=== PATIENT | male | born 1985 | race Caucasian/White ===

== ENCOUNTER 2022-08-18 07:34 | Inpatient (IN) | payer OTHER, SELFPAY ==
[2022-08-18] VITALS (25 sets, daily range): BP systolic 98–111; BP diastolic 58–69; PULSE 78–107; RESP 16–19; TEMP 37.3–39.3; O2SAT 94–100
--- NOTE | 2022-08-18 07:59 | W.ED.GENAD ---
Discharge Plan Disposition Patient Disposition: Admit to [facility] Condition: Serious Discharge Details Chief Complaint: RespSymp Clinical Impression: Intraperitoneal abscess Admit Date/Time: 08/18/22 13:27 Admit Provider: Desmond Muniz Attending Provider: Desmond Muniz Primary Care Provider: Michael Razo ED Provider: Nicolasa Moya Discharge Data Discharge Date/Time-TO BE ENTERED AT DEPARTURE: 08/18/22 14:22 Medical Decision Making Patient is a pleasant 37-year-old gentleman presenting today with chief complaint of 1.5 weeks of fevers, malaise, anorexia and right lower quadrant pain. States steady progression of increasing symptoms. Concerned that he was exposed to influenza. States that he began developing a mild cough this morning but denies any congestion, sore throat, sinus pain. States that he has had loose stools since the onset of this, 2 bowel movements this morning all of which was nonbloody. No nausea or vomiting. Has been trying to hydrate. No recent travel. No previous abdominal surgeries. 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 On exam, patient appears nontoxic. Heart rate is elevated at 107, vitals otherwise within normal limits. Lungs are clear, normal HEENT exam, normal cardiac exam. Abdomen is fairly benign. Some mild discomfort elicited in the right lower quadrant although he does indicate McBurney point is area of maximal tenderness and where he experiences pain when he is driving. The patient was primarily concerned for viral source of his discomfort such as flu, the slow progression does not point to this. As he has not had any upper respiratory symptoms and more significant right lower quadrant pain, I am primarily concerned for appendicitis. He has not had any dysuria, increased frequency or urgency. Plan to obtain baseline labs, CT. Will obtain wound COVID testing. Spoke with the radiologist, he advised that appendix looks normal but that he has several abscesses in the pelvis, largest [id number]. Spoke with general surgery team. They recommend IR drainage, IV abx. He advised that patient would likely be able to d/c to home after drainage placement. Have had images pushed to [facility], will request consultation with IR team. Consulted with [facility]. They advised that patient is able to go to their IR suite for drain placement but that this cannot be completed until tomorrow afternoon. Spoke again with Dr. Muniz who agrees to admit the patient here for IV abx. They will arrange for transport. Patient is flu positive. Unknown when this started. Based on his sxs, likely after the GI pain and onset of abscess formation. Description puts patient out of the window for treatment. From flu standpoint, patient would not be in the hospital, being admitted for abscess which has started to form weeks ago. Discussed plan with patient who agrees to admission here, plan to be transported to for definitive care tomorrow. Sign Out No HPI General Date/Time Provider Initiated Documentation: 08/18/22 07:35. Limitations to Documentation: no limitations. Information obtained by: patient and RN notes reviewed. History of Present Illness 37 year old M presents to the emergency department with the chief complaint of fever, anorexia, diarrhea, RLQ pain, described as mild (intermittent, pain is not severecurrently), Quality is described as aching, and is localized to the abdomen. Patient reports no radiation. Patient started experiencing this week(s) (1.5) and it has been intermittent. Immobilization improves symptom(s), Movement worsens symptoms (pain increases going over bumps when driving) . Patient notes cough (slight cough, started this AM), diaphoresis, fever/chills, loss of appetite and malaise; denies chest pain, headaches, nausea/vomiting, rash and shortness of breath. Patient did receive the following treatments prior to arrival, other (dayquil) Related Data Home Medications Medication Instructions Recorded Confirmed Unknown [No Known Home Meds] 08/18/22 08/18/22 Allergies Allergy/AdvReac Type Severity Reaction Status Date / Time No Known Allergies Allergy Unverified 08/18/22 07:45 General Stated Complaint: RespSymp BLOSSOM: 4 Review of Systems Constitutional Constitutional: Reports as per HPI, Reports chills, Reports fatigue, Reports fever(s), Denies headache(s), Reports lethargy, Reports malaise and Reports poor appetite ENT Ears, Nose, Mouth, and Throat: Denies ear discharge, Denies otalgia, Denies headache(s), Denies nasal congestion, Denies nasal discharge and Denies sore throat Cardiovascular Cardiovascular: Reports as per HPI, Denies chest pain and Denies dyspnea Respiratory Respiratory: Reports as per HPI, Reports cough (chronic cough, increased this AM), Denies hemoptysis, Denies pain on inspiration, Denies pain with cough and Denies dyspnea Gastrointestinal Gastrointestinal: Reports as per HPI Genitourinary Genitourinary: Denies system reviewed and no additional complaints, except as documented (patient denies any change in urinary habits) Musculoskeletal Musculoskeletal: Reports as per HPI and Denies back pain Integumentary/Breasts Skin/Breast: Reports as per HPI and Denies rash Neurologic Neurologic: Reports as per HPI and Denies headache(s) Endocrine Endocrine: Reports fatigue PFSH All Active Problems (Updated 08/19/22 @ 04:35 by FARHAN Dunbar) Intraperitoneal abscess (Acute) Social History Smoking/Tobacco Use Status: Unknown Smoking risk assessment performed?: Yes Alcohol Intake: never Substance use type: does not use Exam Const General: cooperative, healthy appearing, comfortable, no acute distress and well developed Nutritional Appearance: average body habitus and well nourished Orientation: alert and awake HENMT Head: normal to inspection Ears: hearing grossly normal bilaterally, external ears normal, TM's normal bilaterally and mastoids normal Mouth: oral mucosae normal and mucous membranes dry (appears dry) Throat: posterior oropharynx normal and tonsils normal Neck Neck: normal visual inspection, lymphadenopathy noted (left side, singular enlarged node along lateral chain) and no meningeal signs Resp Effort & Inspection: normal respiratory effort, able to speak in complete sentences and no respiratory distress Auscultation: clear to auscultation bilaterally, no rales, no rhonchi and no wheezes Cardio Rate: regular rate Rhythm: regular rhythm Heart Sounds: S1 normal and S2 normal GI Inspection: normal to inspection Palpation: soft, no hepatosplenomegaly, no guarding, no hernias, no masses and tender in the RLQ; Blandon's sign negative, obturator sign negative, psoas sign negative and with no rebound tenderness Back/Spine/Pelvis Back: no CVA tenderness Skin General skin exam: no rashes or lesions noted Trauma: no lacerations or abrasions Neuro General: patient alert and patient awake Cognition: normal cognition Speech: speech normal Gait: normal gait Psych Appearance: grossly normal and well kempt Mental Status: mental status grossly normal Speech and Movement: speech and movement normal Course Vital Signs Vital signs: Vital Signs Temperature 37.3 C 08/18/22 07:41 Pulse 107 H 08/18/22 07:41 Respiratory Rate 16 08/18/22 07:41 Blood Pressure 111/63 08/18/22 07:41 Pulse Oximetry 96 08/18/22 07:41 Temperature 37.3 C 08/18/22 07:41 Temperature Source Oral 08/18/22 07:41 Pulse 107 H 08/18/22 07:41 Respiratory Rate 16 08/18/22 07:41 Respiratory Effort 08/18/22 07:45 Blood Pressure 111/63 08/18/22 07:41 Blood Pressure Position Sitting 08/18/22 07:41 Pulse Oximetry 96 08/18/22 07:41 Oxygen Delivery Method Room Air 08/18/22 07:41 Oxygen Flow Rate 0 08/18/22 07:41 Pain Level 0 08/18/22 07:41
[2022-08-18] MEDS: Lactated Ringers 1,000 ML 1000 ML IV (08:34)
[2022-08-18] MEDS: Normal Saline Flush 10 ML SYR IVP ×2 (08:35→16:24)
[2022-08-18 08:41] LABS: Abs Immature Grans 0.14 10^3/uL (0.0-0.06); Absolute Basophil Count 0.06 10^3/uL (0.0-0.2); Absolute Eosinophil Count 0.09 10^3/uL (0.0-0.7); Absolute Lymphocyte Count 1.37 10^3/uL (1.2-3.4); Absolute Monocyte Count 1.87 10^3/uL (0.1-0.8); Basophils % 0.4; Eosinophils % 0.6; HGB 12.2 g/dL (13.5-17.5); Immature Grans % 0.9; Lymphocytes % 8.7; MCH 30.3 pg (27.0-33.0); MCV 92 fL (80-95); MPV 10.5 fL (8.0-11.0); Monocytes % 11.9; Neutrophils % 77.5; Platelet Count 459 10^3/uL (130-400); RBC 4.02 10^6/uL (4.36-5.78); RDW 13.4 % (11.8-14.1); RDW-SD 45.7 fL; WBC 15.75 10^3/uL (4.4-10.8)
[2022-08-18 08:43] LABS: Absolute Neutrophil Count 12.21 10^3/uL (1.2-6.7)
[2022-08-18 08:56] LABS: ALT 43 U/L (16-63); AST 32 U/L (15-37); Albumin 2.3 g/dL (3.4-5.0); Alkaline Phosphatase 117 U/L (46-116); Anion Gap 9.1 mmol/L (3-11); BUN 13 mg/dL (7-18); Bilirubin, Total 0.3 mg/dL (0.2-1.0); CO2 26.9 mmol/L (21.0-32.0); Calcium 7.9 mg/dL (8.5-10.1); Chloride 102 mmol/L (98-107); Diff Comment Diff Reviewed; Estimated GFR 98.18 (mL/min/1.73m2); Glucose 105 mg/dL (74-106); Magnesium 2.1 mg/dL (1.8-2.4); Potassium 3.4 mmol/L (3.5-5.1); RBC Morphology Normal; Sodium 138 mmol/L (136-145); Total Protein 7.4 g/dL (6.4-8.2)
[2022-08-18 09:06] LABS: COVID-19 PCR Negative (Negative); Influenza A PCR Positive (Negative); Influenza B PCR Negative (Negative); RSV PCR Negative (Negative)
[2022-08-18 09:14] LABS: Source Nasopharynx
[2022-08-18 09:35] LABS: Bilirubin Negative (Negative); Blood Moderate (Negative); Clarity Clear (Clear); Glucose Negative (Negative); Ketones Negative (Negative); Leukocyte Esterase Negative (Negative); Nitrite Negative (Negative); Urobilinogen 0.2 EU/dL (Up TO 0.2)
[2022-08-18 09:47] LABS: Bacteria Few HPF (Negative); Crystals Negative HPF (Negative); Epithelial Cells Rare HPF (Negative); Mucus Moderate (Negative); WBC 0-2 HPF (0-5)
[2022-08-18 09:48] LABS: C & S Indicated? Yes; Casts Negative LPF (Negative)
--- NOTE | 2022-08-18 09:54 | DI.CT_ITS ---
Exam(s) CT ABDOMEN PELVIS W EXAM: CT ABDOMEN PELVIS W CLINICAL HISTORY: RLQ pain. TECHNIQUE: Imaging Protocol: Axial computed tomography images with coronal and sagittal reformatted images were created and reviewed CONTRAST MATERIAL: Intravenous: Omnipaque-350 100cc Oral: None COMPARISON: No exams were available for comparison FINDINGS: VISUALIZED LUNG BASES: No nodules nor pleural effusions evident. ABDOMEN: There is no ascites. LIVER: Liver is hypodense implying steatosis. There are no discrete focal hepatic lesions evident. No dilated intrahepatic ducts. No evidence of intrahepatic abscess. GALLBLADDER/BILIARY: No obvious gallbladder pathology. CBD is not dilated. PANCREAS: No evidence of pancreatic mass nor dilatation of the pancreatic duct. SPLEEN: Spleen is not enlarged. No obvious intrasplenic lesions. Splenic and portal veins are paten t. ADRENALS: There are no significant adrenal masses. KIDNEYS:No cysts evident. No solid renal masses. No calculi nor hydronephrosis.. ABDOMINAL AORTA: Abdominal aorta is not enlarged. LYMPH NODES:There is no retroperitoneal nor paraaortic adenopathy. ABDOMINAL WALL: No evidence of significant anterior abdominal wall nor inguinal hernia. GI: There are multiple abnormal fluid collections in the pelvis. Largest is in the right lower quadr ant and measures approximately 8. cm wide by 3 cm AP by 4 cm craniocaudal. Has appearance of an absc ess. It is immediately adjacent to the terminal ileum. The visualized appendix exhibits upper emily l diameter. The sigmoid wall appears slightly suspect laterally left side for diverticulitis. PELVIS: There is a tiny amount of free fluid in the dependent aspect of the pelvis which is probably purulent . LYMPH NODES: There is no intrapelvic nor inguinal adenopathy. REPRODUCTIVE: Prostate not enlarged. Seminal vesicles unremarkable. URINARY BLADDER: No calculi nor obvious focal masses evident. Bladder wall is mildly but uniformly t hickened. No wall gas evident. OSSEOUS: No significant osseous lesions. IMPRESSION: 1. There are fluid collections in the pelvis-right lower quadrant, largest measuring 8 x 3 x 4 cm med ially adjacent to the terminal ileum. Has appearance of an abscess. The adjacent appendix appears u pper normal diameter and doubtful as etiology.. Suspect sigmoid diverticulitis as the culprit. Othe r smaller nearby abscess is also evident. 2. There is no gas in the portal venous system and no evidence of intrahepatic abscess. However, hep atic steatosis is incidentally noted. 3. There is no gas in the urinary bladder. Discussed with ER provider. RADIATION DOSE DELIVERED: 754.08mGy.cm Total DLP DATA REPOSITORY: All CT scans at this facility are submitted to the National Radiology Data Registry (NRDR) Dose Index Registry (DIR) with the [employer] (ACR). RADIATION OPTIMIZATION: All CT scans at this facility use at least one of these dose optimization te chniques: automated exposure control; mA and/or kV adjustment per patient size (includes targeted exa ms where dose is matched to clinical indication); or iterative reconstruction.
[2022-08-18] MEDS: Omnipaque 350 MG/ML 500 ML BTL-Imaging package 100 ML IJ (10:02)
[2022-08-18] MEDS: Normal Saline - Diluent 50 ML VIAL IV (10:03)
[2022-08-18] MEDS: PIPERACILLIN/TAZO 3.375 GM in Normal Saline 50 ML IVPB ×2 (10:54→18:38)
[2022-08-18] MEDS: Normal Saline 1,000 ML 1000 ML IV (10:54)
--- NOTE | 2022-08-18 10:59 | SCONE_ITS ---
Date of service: 08/18/22 Time of Service: 11:49 Assessment and Plan Assessment and plan (1) Intraperitoneal abscess: Status: Acute Assessment and plan: 37-year-old man with a abdominal/pelvic abscess unknown etiology but most likely from perforated sigmoid diverticulitis based off of the story and the CT scan images I have looked over. Certainly a perforated appendicitis is a possible explanation as well and the sigmoid colon could have its appearance just as a reactive bystander. Certainly the differential diagnosis also includes other etiologies such as an underlying malignancy (less likely) as well as the possibility of IBD (Crohn's or ulcerative colitis) but his terminal ileum looks normal radiographically and he does not have a history of chronic abdominal pain. A Meckel's diverticulitis that perforated iis also a possibility. He is hemodynamically stable and his abdominal exam is grossly benign with the exception of mild distention that he actually reports feels normal to me. Further he is passing gas and having bowel function. He has a leukocytosis and has been having fevers and the mainstay of his management strategy will be source control with percutaneous/IR?guided drainage. Draining the abscess and antibiotics should result in complete resolution in the majority of cases such as these. He will then need to have outpatient work-up for the underlying etiology and further discussion on future management strategies, if any. He definitely should have a colonoscopy in the next 6-8 weeks to evaluate the sigmoid colon in this region. If his colonoscopy turns out normal then I would advocate for diagnostic laparoscopy and interval, elective appendectomy if no other pathologic processes found. I suspect however, that a colonoscopy will reveal underlying diverticular disease and this is probably going to be the explanation for all of this. Whether or not to do an elective resection irritable but this can all be discussed after we have more knowledge of what caused this. Overall recommendations: Consult/transfer to tertiary facility for IR drainage If that cannot be facilitated today that he should stay in the hospital with IV antibiotics until drainage can be performed after which he can then be discharged on oral antibiotics once afebrile and leukocytosis has resolved. History of Present Illness Narrative: The patient is a 37-year-old otherwise healthy man who has not been having any issues previously who says about 2 weeks ago he started feeling sick. The sick feeling is very vague and involved respiratory as well as abdominal symptoms. None of them were very severe but he says about a week and a half ago he did develop severe abdominal pain that was cramping in the lung and lower belt line. This progressively got worse over the ensuing couple of days but then seemed to slowly improve but never went away completely. He also started having fevers shortly thereafter and says everyone in his house has the flu and he came to the ER today because he thinks he probably has the flu. At the bedside today he does not report severe abdominal pain but says he has this persistent discomfort in the right lower side like a pulled muscle. And it just will not go away. But that is not his chief complaint or why he is here in particular. At home he says he has been having normal bowel movements and has been passing gas without any problems. He denies a family history of colon cancer. He has actually had a colonoscopy before but he says it was years ago, he thinks more than 10 years. He says that that was done because of a family history of colon polyps at a young age. He just remembers being told it was normal. CT scan performed in the ED and a large intra-abdominal abscess was seen in the right lower quadrant and pelvis. The appendix is on one side of the abscess in the sigmoid colon is on the other side and appears mildly irritated. He was also found to have a white count and for these reasons surgery was consulted. He denies ever having intra-abdominal surgery previously. PFSH All Active Problems (Updated 08/18/22 @ 11:54 by Desmond Muniz MD) Intraperitoneal abscess (Acute) Social History Smoking risk assessment performed?: No Alcohol Intake: never Substance use type: does not use Exam Narrative Exam Narrative: General: Nontoxic, comfortable and interactive. Nonlabored breathing. Neuro: Alert and oriented x3 Psych: Appropriate mood and affect, good insight and understanding into his condition Abdomen: Soft, mildly distended, he really has no tenderness anywhere. Results Last Vital Signs Temp 100.4 F H 08/18/22 10:28 Pulse 81 08/18/22 10:28 Resp 16 08/18/22 10:28 BP 99/61 L 08/18/22 10:28 Pulse Ox 97 08/18/22 10:28 Labs Result diagrams: 08/18/22 08:30 08/18/22 08:30 Labs: Laboratory Results - last 24 hr 08/18/22 08/18/22 08/18/22 08:26 08:30 08:30 WBC 15.75 H RBC 4.02 L Hgb 12.2 L Hct 37.0 L MCV 92 MCH 30.3 MCHC 33.0 RDW 13.4 Plt Count 459 H MPV 10.5 Immature Gran % 0.9 Neutrophils % 77.5 Lymphocytes % 8.7 Monocytes % 11.9 Eosinophils % 0.6 Basophils % 0.4 Nucleated RBC % 0.0 Absolute Neutrophils 12.21 H Absolute Lymphocytes 1.37 Absolute Monocytes 1.87 H Absolute Eosinophils 0.09 Absolute Basophils 0.06 RBC Morphology Normal Sodium 138 Potassium 3.4 L Chloride 102 Carbon Dioxide 26.9 Anion Gap 9.1 BUN 13 Creatinine 1.0 Est GFR (CKD-EPI 2020) 98.18 Glucose 105 Calcium 7.9 L Magnesium 2.1 Total Bilirubin 0.3 AST 32 ALT 43 Alkaline Phosphatase 117 H Total Protein 7.4 Albumin 2.3 L Urine Color Urine Clarity Urine pH Ur Specific [place] Urine Protein Urine Ketones Urine Blood Urine Nitrite Urine Bilirubin Urine Urobilinogen Ur Leukocyte Esterase Urine RBC Urine WBC Ur Epithelial Cells Urine Crystals Urine Bacteria Urine Casts Urine Mucus Ur Culture Indicated? Urine Glucose COVID-19 Source Nasopharynx SARS-CoV-2 (PCR) Negative Influenza Type A (PCR) Positive A Influenza Type B (PCR) Negative RSV (PCR) Negative 08/18/22 09:27 WBC RBC Hgb Hct MCV MCH MCHC RDW Plt Count MPV Immature Gran % Neutrophils % Lymphocytes % Monocytes % Eosinophils % Basophils % Nucleated RBC % Absolute Neutrophils Absolute Lymphocytes Absolute Monocytes Absolute Eosinophils Absolute Basophils RBC Morphology Sodium Potassium Chloride Carbon Dioxide Anion Gap BUN Creatinine Est GFR (CKD-EPI 2020) Glucose Calcium Magnesium Total Bilirubin AST ALT Alkaline Phosphatase Total Protein Albumin Urine Color Yellow Urine Clarity Clear Urine pH 7.0 Ur Specific [place] 1.020 Urine Protein Trace H Urine Ketones Negative Urine Blood Moderate H Urine Nitrite Negative Urine Bilirubin Negative Urine Urobilinogen 0.2 Ur Leukocyte Esterase Negative Urine RBC 5-10 H Urine WBC 0-2 Ur Epithelial Cells Rare Urine Crystals Negative Urine Bacteria Few Urine Casts Negative Urine Mucus Moderate Ur Culture Indicated? Yes Urine Glucose Negative COVID-19 Source SARS-CoV-2 (PCR) Influenza Type A (PCR) Influenza Type B (PCR) RSV (PCR)
[2022-08-18] MEDS: ACETAMINOPHEN 1,000 MG/100 ML BTL 400 MG IVPB (11:14)
[2022-08-18] MEDS: Acetaminophen 500 MG TAB 1000 MG PO ×2 (16:11→21:19)
[2022-08-18] MEDS: Enoxaparin 40 MG/0.4 ML SYR SC (16:12)
[2022-08-18] MEDS: Lactated Ringers 1,000 ML 125 ML IV (16:24)
[2022-08-18] MEDS: Normal Saline 500 ML 30 ML IV (18:38)
[2022-08-19] MEDS: PIPERACILLIN/TAZO 3.375 GM in Normal Saline 50 ML IVPB ×4 (00:02→18:38)
[2022-08-19 02:09] VITALS: TEMP 37.9
[2022-08-19] MEDS: Acetaminophen 500 MG TAB 1000 MG PO ×4 (02:09→21:12)
[2022-08-19] MEDS: Lactated Ringers 1,000 ML 125 ML IV ×2 (02:10→11:37)
[2022-08-19 05:04] VITALS: TEMP 36.4
[2022-08-19 06:24] LABS: Abs Immature Grans 0.11 10^3/uL (0.0-0.06); Absolute Basophil Count 0.03 10^3/uL (0.0-0.2); Absolute Eosinophil Count 0.09 10^3/uL (0.0-0.7); Absolute Lymphocyte Count 2.15 10^3/uL (1.2-3.4); Absolute Monocyte Count 1.29 10^3/uL (0.1-0.8); Basophils % 0.2; Eosinophils % 0.7; HCT 38.3 % (40.0-50.0); HGB 12.2 g/dL (13.5-17.5); Immature Grans % 0.8; Lymphocytes % 16.2; MCH 29.6 pg (27.0-33.0); MCHC 31.9 % (32.0-36.0); MCV 93 fL (80-95); MPV 10.7 fL (8.0-11.0); Monocytes % 9.7; Neutrophils % 72.4; Platelet Count 392 10^3/uL (130-400); RBC 4.12 10^6/uL (4.36-5.78); RDW 13.6 % (11.8-14.1); RDW-SD 46.7 fL; WBC 13.27 10^3/uL (4.4-10.8)
[2022-08-19 06:34] LABS: Absolute Neutrophil Count 9.61 10^3/uL (1.2-6.7)
[2022-08-19 07:44] VITALS: BP 110/73; PULSE 72; RESP 18; TEMP 37.4; O2SAT 99
--- NOTE | 2022-08-19 09:59 | PDOC.CMIN ---
- If Service Date Differs Date of service: 08/19/22 Time of Service: 09:59 Care Management Initial Assess REASON FOR HOSPITALIZATION:: Inraperitoneal abscesses PAST MEDICAL HISTORY/PAST SURGICAL HISTORY:: All Active Problems (Updated 08/18/22 @ 11:54 by Desmond Muniz MD). Intraperitoneal abscess (Acute) PREVIOUS FUNCTIONAL STATUS/SOCIAL/FAMILY SUPPORTS:: Carlos Enrique lives in [place]. He works for [employer] CURRENT FUNCTIONAL STATUS:: CM was not able to meet with Carlos Enrique as he was transferred to [facility] for a down and back abscess drainage procedure in Interventional Radiology. His WBC remains elevated at 13.27 but is down from yesterday. He was febrile with a temperature of 39.3 C last evening, but he also has influenza A. ADVANCE DIRECTIVES:: none on file Has patient been provided with info about the portal/API?: Yes Did the patient sign up for the portal?: No CODE STATUS:: Full Code INSURANCE COVERAGE / FINANCIAL ISSUES:: [employer] CURRENT HOME/COMMUNITY SERVICES/EQUIPMENT:: none currently PRIMARY CARE PHYSICIAN:: Michael Razo POTENTIAL DISCHARGE NEEDS:: follow up with PCP and plan of care PATIENT/FAMILY EDUCATION NEEDS:: Review of discharge instructions, follow up plan, activity, limitations, Ask Me Three TRANSPORTATION:: via private vehicle with family PLAN:: Anticipate Carlos Enrique will discharge home with no new services unless transfer to a tertiary care facility is indicated. He will follow up with community providers and plan of care and transport with family. CM will continue to support Carlos Enrique and assess for ongoing discharge needs.
--- NOTE | 2022-08-19 11:11 | NUR.NOTE ---
Nursing Note: RN TO RN REPORT GIVEN TO ZEYAD ESCOBEDO FROM IR AT [facility]
[2022-08-19] MEDS: Normal Saline Flush 10 ML SYR IVP ×3 (11:38→21:32)
--- NOTE | 2022-08-19 12:55 | NUR.NOTE ---
Nursing Note: Pt left for [facility] IR procedure @ 12:55 w/ luci senior.
[2022-08-19] MEDS: Enoxaparin 40 MG/0.4 ML SYR SC (18:24)
[2022-08-19 18:33] VITALS: BP 110/70; PULSE 79; RESP 16; TEMP 37.4; O2SAT 100
[2022-08-19] MEDS: Nicotine 21 MG/24 HR PATCH TD (21:12)
[2022-08-19 23:12] VITALS: BP 98/61; PULSE 91; RESP 16; TEMP 37.5; O2SAT 95
[2022-08-20] MEDS: PIPERACILLIN/TAZO 3.375 GM in Normal Saline 50 ML IVPB ×2 (00:04→05:28)
[2022-08-20] MEDS: Acetaminophen 500 MG TAB 1000 MG PO ×2 (04:10→07:45)
[2022-08-20 04:15] VITALS: BP 108/72; PULSE 80; RESP 16; O2SAT 92
--- NOTE | 2022-08-20 07:28 | DSE_ITS ---
Date of service: 08/20/22 Time of Service: 07:28 DS: Diagnosis Discharge Diagnosis (1) Intraperitoneal abscess: Status: Acute Asessment and Plan: Record the volume of drainage in the collection device every day Check your temperature 2 times per day Follow-up in the office 1 week Discharge Plan Disposition Patient Disposition: Home Condition: Good Discharge Details Reason For Visit: Intraabdominal Abcess Admit Date/Time: 08/18/22 13:27 Admit Provider: Desmond Muniz Attending Provider: Desmond Muniz Primary Care Provider: Michael Razo Hospital Course Hospital Course: Carlos Enrique is a 37-year-old male who is approximately 2 weeks of a upper respiratory type symptoms. This was followed by crampy abdominal pain which steadily increased over the past several days. Came to the emergency department for evaluation of his abdominal pain, concerns that he had worsening. In fact, he did test positive for influenza type A. Additionally, he underwent a CAT scan of abdomen pelvis that showed a peritoneal abscess. The etiology of the a bscess was unclear, as its location was somewhat between the appendix and the sigmoid colon. He had a leukocytosis, but favorable hemodynamics. He was started on broad-spectrum antibiotics, and transfer down to [facility] for insertion of a percutaneous drain. He tolerated the procedure well. His white blood cell count trended towards normal, and he was discharged home with a drain in place and follow-up instructions with the office Home Meds and New Rx's Prescriptions: New tramadol 50 mg tablet 50 mg PO BID PRN (Reason: pain) Qty: 6 0RF Rx Instructions: Take 1 tablet by mouth every 12 hours as needed for severe pain amoxicillin-pot clavulanate 875-125 mg tablet 1 tab PO BID Qty: 20 0RF Rx Instructions: Take 1 tablet by mouth in the morning, and 1 tablet by mouth in the evening every day for 10 days Discharge Instructions Instructions: Peritonitis (GEN) Additional Instructions: 1. Record the output from your drain every day in a journal. Flush the drain at least once daily. 2. Okay to use tylenol and ibuprofen over the counter as needed for mild pain. Use the prescribed tramadol for more severe pain. 3. Leave bandages in place for 24 hours, then remove. 4. Shower with warm soapy water. Pat dry. Replace a Band-Aid around the drain insertion site if needed. 5. No soaking or tub baths until I see you in the office. 6. No heavy lifting until I see you in the office. 7. Call the office (or go directly to the emergency room after hours) if you notice any of the following: Develop chills (warm to touch), or if you have a thermometer and your temperature is above 101 Difficulty breathing or difficultly swallowing Persistent vomiting Any bleeding ? exceeding one tablespoon Stand Alone Forms: Nursing Discharge Form Referrals: Tray Monroy MD [ [facility]IAN] - 08/27/22 11:15 am Activity:: Activity as Tolerated Equipment/Supplies:: Saline flushes for drain Diet:: As Tolerated DS: Summary Time Spent with Patient providing and/or coordinating discharge services: Less than 30 minutes Status at Discharge Functional status at discharge: independent ambulation Overall status at discharge: patient is progressing back to baseline Mental Status: mental status grossly normal Speech and Movement: speech and movement normal Mood: congruent mood Affect: normal affect Exam Const General: cooperative, healthy appearing and comfortable Orientation: awake and oriented x3 Eyes General: appearance normal, both eyes and all related structures Conjunctivae: conjunctivae normal Sclera: sclerae normal Resp Effort & Inspection: normal respiratory effort and able to speak in complete sentences Cardio Jugular venous pressure: no JVD Rate: regular rate GI Inspection: non-distended Palpation: soft, no guarding, no hernias and nontender Auscultation: normal bowel sounds Other: Drain site is clean, the drain effluent is seropurulent Skin General skin exam: normal turgor Neuro General: patient alert, patient awake and patient oriented x3 Cognition: normal cognition Extrem Right lower extremity: no edema Left lower extremity: no edema Psych Mental Status: mental status grossly normal Speech and Movement: speech and movement normal Mood: congruent mood Affect: normal affect DS: Data Vitals/I&O Vitals and I&O: Vital Signs Temperature 99.5 F 08/19/22 23:12 Temperature Source Tympanic 08/20/22 04:15 Pulse 80 08/20/22 04:15 Pulse Rhythm Regular 08/20/22 04:36 Respiratory Rate 16 08/20/22 04:15 Respiratory Effort 08/20/22 04:36 Respiratory Depth Normal 08/20/22 04:36 Respiratory Pattern Normal 08/20/22 04:36 Blood Pressure 108/72 08/20/22 04:15 Blood Pressure Mean 72 08/18/22 12:45 Blood Pressure Position Sitting 08/18/22 07:41 Pulse Oximetry 92 08/20/22 04:15 Oxygen Delivery Method Room Air 08/20/22 04:15 Oxygen Flow Rate 0 08/20/22 04:15 Pain Level 5 08/20/22 04:15 Intake & Output 08/19/22 08/19/22 08/20/22 11:59 23:59 11:59 Intake Total 1305.416 / 1480.416 175 / 1480.416 979.333 / 979.333 Output Total 50 / 50 Balance 1305.416 / 1430.416 125 / 1430.416 979.333 / 979.333 Intake: IV 1205.416 / 1380.416 175 / 1380.416 758.333 / 758.333 Oral 100 / 100 221 / 221 Injectate 0 / 0 RLQ Drain 0 / 0 Output: Drainage 50 / 50 RLQ Drain 50 / 50 Other: Urine Color Yellow Urine Appearance Clear Clear Clear Urine Odor Normal Comment pT uses the bathroom independently. pt voided independently Voiding Methods Toilet Toilet Data Completed and Pending Labs on day of discharge: Labs from last 24 hours 08/20/22 06:00 WBC Pending RBC Pending Hgb Pending Hct Pending MCV Pending MCH Pending MCHC Pending RDW Pending Plt Count Pending MPV Pending Preliminary micro results at discharge 08/18/22 09:27 Urine Culture - Preliminary Urine - Reflex from Counts include 234 beds at the [facility] All Active Problems Intraperitoneal abscess (Acute) Social History Smoking/Tobacco Use Status: Unknown Smoking risk assessment performed?: Yes Alcohol Intake: never Substance use type: does not use
[2022-08-20 07:35] LABS: HCT 37.1 % (40.0-50.0); HGB 12.1 g/dL (13.5-17.5); MCHC 32.6 % (32.0-36.0); MCV 92 fL (80-95); MPV 10.4 fL (8.0-11.0); Platelet Count 396 10^3/uL (130-400); RBC 4.03 10^6/uL (4.36-5.78); RDW 13.4 % (11.8-14.1); RDW-SD 46.3 fL; WBC 11.04 10^3/uL (4.4-10.8)
[2022-08-20] MEDS: Lactated Ringers 1,000 ML 125 ML IV (07:45)
[2022-08-20] MEDS: Amoxicillin 875/Clav. 125 TAB PO (07:45)
[2022-08-20 07:46] VITALS: BP 104/70; PULSE 76; RESP 16; TEMP 36.9; O2SAT 94
--- NOTE | 2022-08-20 15:18 | PDOC.CMDIS ---
- If Service Date Differs Date of service: 08/20/22 Time of Service: 15:18 LACE Index Scoring Tool - Questions: Length of Stay (in days): 2 Acuity (Admit via E.D.?): Yes E.D. Visits: 1 - Answers: Total Score: 6 Risk of Readmission: Low Risk Care Management Discharge Reason for Hospitalization: Inraperitoneal abscesses Discharge Plan: Carlos Enrique will discharge home with no new services, he will follow up with community providers and plan of care and transport with family. Patient/Family Education Needs: Review discharge instructions, discuss Ask Me Three.
--- NOTE | 2022-09-05 09:58 | W.PM.PROGNOT ---
Date of Service Date of service: 08/19/22 Time of Service: 14:30 Assessment and Plan Assessment and plan (1) Intraperitoneal abscess: Status: Acute Assessment and plan: We will continue the intravenous antibiotics for now, and reassess after the insertion of the drain. We will have to see what the character of the drainage is, and how he does clinically, but hopefully we can transition to enteral antibiotics in the next day or so, and work towards getting him discharged home. Subjective Subjective Interval history since last seen: This note is entered in a delayed fashion because Carlos Enrique was not present during my visit. Unfortunately, [facility] was not able to accommodate percutaneous drainage yesterday. He did fine overnight, with no significant clinical changes. He was brought down to [facility] for percutaneous drainage this afternoon. Objective Last Vital Signs Temp 98.4 F 08/20/22 07:46 Pulse 76 08/20/22 07:46 Resp 16 08/20/22 07:46 BP 104/70 08/20/22 07:46 Pulse Ox 94 08/20/22 07:46
== END 2022-08-20 11:34 | disposition home or self-care (01) | DRG 373 ==
LOC: ER 07:58 → MS 15:03
PROVIDERS: Surgery; Admitting Provider Student in an Organized Health Care Education/Training Program; Emergency Provider Physician Assistant; PCP Internal Medicine; Visit Provider Student in an Organized Health Care Education/Training Program
DX: K65.1 Peritoneal abscess (principal); J10.1 Influenza due to other identified influenza virus with other respiratory manifestations; D72.829 Elevated white blood cell count, unspecified
CPT/HCPCS: 36415; 80053; 85027; 87637; 96361; 96365; 96375; 99285; J1650; 74177; 81003; 81015; 83735; 85025; 87086; 99284; J0131; J2543

== ENCOUNTER 2023-01-14 11:47 | Inpatient (IN) | payer MEDICAID, SELFPAY ==
[2023-01-14] VITALS (11 sets, daily range): BP systolic 97–104; BP diastolic 66–76; PULSE 93–117; RESP 17–18; TEMP 36.8–37.2; O2SAT 98–99
--- NOTE | 2023-01-14 12:00 | DI.CT_ITS ---
Exam(s) CT ABDOMEN PELVIS W EXAM: CT ABDOMEN PELVIS W CLINICAL HISTORY: abdominal pain, recent surgery for sbo. TECHNIQUE: Imaging Protocol: Axial computed tomography images with coronal and sagittal reformatted images were created and reviewed CONTRAST MATERIAL: Intravenous: Omnipaque 350 Contrast volume:100 ml Oral: yes / no COMPARISON: CT CT ABDOMEN PELVIS W from 08/18/[address] ABDOMEN PELVIS W from 09/18/2022 FINDINGS: ABDOMEN: Lung Bases: Normal where visualized. Liver: Normal density. No measurable mass. Gallbladder and biliary tract: No radiodense calculus or dilation. Pancreas: Normal density, no abnormal calcifications or inflammatory process. Spleen: Normal. Kidneys: Normal size, contour and axis. No radiodense stones or obstructive uropathy. No suspicious m asses seen. Adrenal glands: No masses seen. Abdominal Aorta: Abdominal portion non-dilated. Soft tissues: Midline skin josias. No significant fluid collection or evidence of abscess in this l ocation. New abscess in the right lower quadrant subcutaneous fat, measuring 4.4 by arm 2.8 by 3.8 c m. There are some mildly enlarged right groin lymph nodes, consistent with reactive lymph nodes PELVIS: Bladder: Nearly empty. Not well evaluated. No calculi. Bowel: No obstruction. Severe inflammation involving bowel loops in the right lower quadrant in the previous location of the abscess. No discrete abscess is visible today. Suture material noted in th e right lower quadrant could be related to bowel resection. Continued wall thickening of the sigmoid colon which could be reactive secondary to adjacent inflammation. Bones: Within normal limits for age. Reproductive organs: Within normal limits. Impression: 4.4 centimeter abscess in the right lower quadrant subcutaneous fat. no intra-abdominal abscess. W all thickening of multiple loops of small bowel in the right lower quadrant as well as sigmoid. No e vidence of obstruction. Findings discussed with Dr. Valdes of the emergency department. RADIATION DOSE DELIVERED: 641.65mGy.cm Total DLP DATA REPOSITORY: All CT scans at this facility are submitted to the National Radiology Data Registry (NRDR) Dose Index Registry (DIR) with the [employer] (A[employer]). RADIATION OPTIMIZATION: All CT scans at this facility use at least one of these dose optimization te chniques: automated exposure control; mA and/or kV adjustment per patient size (includes targeted exa ms where dose is matched to clinical indication); or iterative reconstruction.
[2023-01-14] MEDS: Normal Saline 1,000 ML 1000 ML IV (12:02)
[2023-01-14 12:06] LABS: ESR 66 mm/hr (0-15)
--- NOTE | 2023-01-14 12:08 | ED.GENADUL_ITS ---
Discharge Plan Disposition Condition: Stable Discharge Details Chief Complaint: Abd Prob Clinical Impression: Hx of abdominal abscess, Abscess of skin and subcutaneous tissue Primary Care Provider: Michael Razo ED Provider: Carlos Enrique Valdes Home Meds and New Rx's Prescriptions: No Action ibuprofen 200 mg capsule 400 mg PO Q6H PRN Medical Decision Making 37 yo male comes in with abdominal pain. HE was treated with percutaneous drain earlier this year for intraabdominal abscess that was removed. 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 His paperwork he has from that just says d/c'd 01/02 with diagnosis of bowel obstruction. HE had been doing well since with mild pain but today increased abdominal pain so came here. He denies fevers, chills, chest pain, n/v. He localizes the pain to the mid abdomen, has numerous stables in a midline vertical surgical incision without drainage or surrounding erythema. Unclear etiology for his pain, will attempt to obtain records from outside hospital and also obtain cbc, cmp, lipase, ct abd/pelvis. wbc and inflammatory markers elevated, mild low K of 3.1, pt stable. CT shows abscess in the subcutaneous fat in the rlq and nonspecific inflammation of bowels. No overlying skin findings where the abscess is. Consulted Dr. Monroy from general surgery who plans to admit the pt and likely drain the abscess, dose of zosyn given Differential Diagnosis Differential Diagnosis: sbo, pneumoperitoenum Imaging Data Radiologic Study: Attestation: I personally reviewed and interpreted this imaging study as follows: Imaging: CT Scan Radiologist's impression: Impression: 4.4 centimeter abscess in the right lower quadrant subcutaneous fat. ? no intra- abdominal abscess.? Wall thickening of multiple loops of small bowel in the right lower quadrant as well as sigmoid.? No evidence of obstruction. Findings discussed with Dr. Valdes of the emergency department. Lab Data Lab results reviewed: Yes I reviewed the patient's lab results. HPI General Mode of arrival: EMS . Date/Time Provider Initiated Documentation: 01/14/23 11:48 . Limitations to Documentation: no limitations . Information obtained by: patient . History of Present Illness 37 year old M presents to the emergency department with the chief complaint of abdominal pain, described as moderate, Patient reports no radiation. and it has been constant. No relieving factors improve symptom(s), No exacerbating factors reported . Patient notes denies chest pain and fever/chills. Related Data Home Medications Medication Instructions Recorded Confirmed ibuprofen 200 mg capsule 400 mg PO Q6H PRN 08/27/22 01/14/23 Allergies Allergy/AdvReac Type Severity Reaction Status Date / Time No Known Allergies Allergy Unverified 01/14/23 11:54 General Stated Complaint: Abd Prob BLOSSOM: 3 Review of Systems All systems reviewed & are unremarkable except as noted in HPI and below Constitutional Constitutional: Denies chills, Denies fever(s) and Denies weakness Cardiovascular Cardiovascular: Denies chest pain and Denies dyspnea Respiratory Respiratory: Denies cough and Denies dyspnea Gastrointestinal Gastrointestinal: Denies nausea and Denies vomiting Musculoskeletal Musculoskeletal: Denies joint swelling Neurologic Neurologic: Denies weakness PFSH All Active Problems (Updated 01/14/23 @ 13:39 by Carlos Enrique Valdes MD) Hx of abdominal abscess (Acute) Abscess of skin and subcutaneous tissue (Acute) Intraperitoneal abscess (Acute) Social History Smoking/Tobacco Use Status: Unknown Smoking risk assessment performed?: Yes Alcohol Intake: never Substance use type: does not use Current gender identity: male Do you feel safe at home: Yes Do you feel safe in your relationship?: Yes Exam Const General: no acute distress Orientation: alert HENMT Head: normal to inspection Ears: external ears normal General nose exam: external nose normal Mouth: moist mucous membranes Eyes General: appearance normal, both eyes and all related structures Neck Neck: normal visual inspection Resp Effort & Inspection: normal respiratory effort and able to speak in complete sentences Cardio Rate: regular rate GI Palpation: soft and tender Skin General skin exam: no rashes or lesions noted Neuro General: patient alert and patient oriented x3 Extrem General: normal to inspection Psych Mental Status: mental status grossly normal Course Vital Signs Vital signs: Vital Signs Pulse 117 H 01/14/23 11:50 Respiratory Rate 18 01/14/23 11:50 Blood Pressure 103/76 01/14/23 11:50 Pulse Oximetry 98 01/14/23 11:50 Pulse 117 H 01/14/23 11:50 Respiratory Rate 18 01/14/23 11:50 Respiratory Effort Normal 01/14/23 11:54 Blood Pressure 103/76 01/14/23 11:50 Blood Pressure Position Supine 01/14/23 11:50 Pulse Oximetry 98 01/14/23 11:50 Oxygen Delivery Method Room Air 01/14/23 11:50 Oxygen Flow Rate 0 01/14/23 11:50 Pain Level 3 01/14/23 11:50
[2023-01-14 12:09] LABS: Abs Immature Grans 0.04 10^3/uL (0.0-0.06); Absolute Basophil Count 0.04 10^3/uL (0.0-0.2); Absolute Eosinophil Count 0.14 10^3/uL (0.0-0.7); Absolute Lymphocyte Count 2.74 10^3/uL (1.2-3.4); Absolute Monocyte Count 1.15 10^3/uL (0.1-0.8); Absolute Neutrophil Count 10.23 10^3/uL (1.2-6.7); Basophils % 0.3; HCT 38.8 % (40.0-50.0); HGB 12.8 g/dL (13.5-17.5); Immature Grans % 0.3; Lymphocytes % 19.1; MCH 29.4 pg (27.0-33.0); MCV 89 fL (80-95); MPV 10.7 fL (8.0-11.0); Neutrophils % 71.3; Platelet Count 349 10^3/uL (130-400); RBC 4.36 10^6/uL (4.36-5.78); RDW 13.7 % (11.8-14.1); RDW-SD 45.4 fL; WBC 14.35 10^3/uL (4.4-10.8)
[2023-01-14] MEDS: Ketorolac 15 MG/ML VIAL IVP (12:16)
[2023-01-14 12:23] LABS: ALT 25 U/L (16-63); AST 13 U/L (15-37); Albumin 2.9 g/dL (3.4-5.0); Alkaline Phosphatase 115 U/L (46-116); Anion Gap 9.2 mmol/L (3-11); BUN 6 mg/dL (7-18); Bilirubin, Total 0.3 mg/dL (0.2-1.0); C-Reactive Protein 17.08 mg/dL (0.0-0.3); CO2 29.8 mmol/L (21.0-32.0); CREATININE 0.8 mg/dL (0.70-1.30); Chloride 98 mmol/L (98-107); Estimated GFR 115.45 (mL/min/1.73m2); Glucose 95 mg/dL (74-106); Lipase 24 U/L (16-77); Magnesium 1.8 mg/dL (1.8-2.4); Potassium 3.1 mmol/L (3.5-5.1); Sodium 137 mmol/L (136-145); Total Protein 8.2 g/dL (6.4-8.2)
[2023-01-14] MEDS: Normal Saline - Diluent 50 ML VIAL IV (12:33)
[2023-01-14] MEDS: Omnipaque 350 MG/ML 500 ML BTL-Imaging package 100 ML IJ (12:35)
[2023-01-14 13:06] LABS: Procalcitonin < 0.1 ng/mL
[2023-01-14] MEDS: PIPERACILLIN/TAZO 4.5 GM in Normal Saline 100 ML IVPB (14:06)
[2023-01-14] MEDS: POTASSIUM CHLORIDE 20 MEQ/100 ML BAG 50 MEQ IVPB (14:46)
--- NOTE | 2023-01-14 17:01 | W.PM.HP.N ---
Date of service: 01/14/23 Time of Service: 17:02 Assessment and Plan Assessment and plan (1) Abscess of skin and subcutaneous tissue: Status: Acute Assessment and plan: Radiographically, this seems most consistent with a subcutaneous abscess, although the location relative to his surgical site is quite atypical. It does lie along the trajectory of his previous percutaneous drainage, and I suppose if his most recent surgery did not address the underlying pathology, that could be a source. We will start him on some antibiotics tonight and reassess his CBC and exam tomorrow. I did explain that if he remains tender, I be inclined to incise and drain the area, as well as to obtain a specimen for culture I will reach out to his surgeon at [facility] and see if there is any pathology available from his previous resection. History of Present Illness History of Present Illness Chief Complaint: Abdominal pain Narrative: Carlos Enrique is 37 years old, and he first presented to our hospital with acute onset of abdominal pain in August 2022. At that time, he had a CAT scan that showed peritoneal abscess that was treated with percutaneous drainage and antibiotics. The exact etiology of the abscess was unclear, the leading diagnosis at the time was diverticulitis versus appendicitis. The drain was eventually removed, and we had planned for a follow-up colonoscopy in the months to follow. 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 He was awoken from sleep with stabbing abdominal pain, and he went to a local emergency departmentmt at [facility]. He was admitted, and it sounds like he underwent a few days of treatment and diagnostics prior to going to the operating room. Eventually, he underwent laparotomy, what sounds like a distal small bowel resection (perhaps for obstruction) and incidental appendectomy. He stayed in the hospital for another week, then was discharged home, and was advised to follow-up with a local doctor for removal of surgical josias. He is not certain of any pathology that may have been sent. Since he has been home he has been feeling okay up until today, when he noticed a cute onset of right lower quadrant pain. He came to the emergency department. He was found to have a leukocytosis. He underwent a CAT scan of the abdomen and pelvis that showed some thickening of the distal small bowel, as well as some mesenteric inflammation. He also has a loop of colon that has some inflammation. Most interestingly, there is some air, fluid, and inflammation in the right lower quadrant superficial to the rectus muscles that radiographically seems consistent with an abscess. Review of Systems Constitutional Constitutional: Denies anorexia, Denies body ache(s), Denies chills, Denies fever(s) and Denies poor appetite Eyes Eyes: Reports system reviewed and no additional complaints, except as documented ENT Ears, Nose, Mouth, and Throat: Reports system reviewed and no additional complaints, except as documented Cardiovascular Cardiovascular: Denies chest pain and Denies dyspnea Respiratory Respiratory: Denies chest congestion, Denies cough and Denies dyspnea Gastrointestinal Gastrointestinal: Reports abdominal pain, Denies belching, Denies bloating, Denies change in stool character and Denies constipation Genitourinary Genitourinary: Reports system reviewed and no additional complaints, except as documented Musculoskeletal Musculoskeletal: Reports system reviewed and no additional complaints, except as documented Hematologic/Lymphatic Hematologic/Lymphatic: Denies easy bleeding and Denies easy bruising PFSH All Active Problems Hx of abdominal abscess (Acute) Abscess of skin and subcutaneous tissue (Acute) Intraperitoneal abscess (Acute) Social History Smoking/Tobacco Use Status: Unknown Smoking risk assessment performed?: Yes Alcohol Intake: never Substance use type: does not use Current gender identity: male Do you feel safe at home: Yes Do you feel safe in your relationship?: Yes Meds Allergies and Home Medications Allergies Allergy/AdvReac Type Severity Reaction Status Date / Time No Known Allergies Allergy Unverified 01/14/23 17:46 Home Medications Medication Instructions Recorded Confirmed Type ibuprofen 200 mg capsule 400 mg PO Q6H PRN 08/27/22 01/14/23 History Exam Const General: cooperative, healthy appearing and comfortable Nutritional Appearance: average body habitus Orientation: alert, awake and oriented x3 HENMT Head: normal to inspection Neck Neck: normal visual inspection, full ROM and no lymphadenopathy Thyroid: thyroid normal Chest Chest: normal inspection of the chest Resp Effort & Inspection: normal respiratory effort and able to speak in complete sentences Auscultation: clear to auscultation bilaterally Cardio Rate: regular rate Rhythm: regular rhythm Heart Sounds: S1 normal and S2 normal GI Inspection: incision (Clean, minimal tenderness. No erythema) Palpation: soft, guarding (Right lower quadrant), no hernias and tender (Right lower quadrant) Percussion: normal to percussion Auscultation: normal bowel sounds Other: Although he is tender in the right lower quadrant, there is no fluctuance or erythema. There is no ecchymosis he has a small amount of inguinal lymphadenopathy Results Labs 01/14/23 12:00 01/14/23 12:00 Labs: Laboratory Results - last 24 hr 01/14/23 01/14/23 01/14/23 12:00 12:00 12:00 WBC RBC Hgb Hct MCV MCH MCHC RDW Plt Count MPV Immature Gran % Neutrophils % Lymphocytes % Monocytes % Eosinophils % Basophils % Nucleated RBC % Absolute Neutrophils Absolute Lymphocytes Absolute Monocytes Absolute Eosinophils Absolute Basophils ESR 66 H Sodium 137 Potassium 3.1 L Chloride 98 Carbon Dioxide 29.8 Anion Gap 9.2 BUN 6 L Creatinine 0.8 Est GFR (CKD-EPI 2020) 115.45 Glucose 95 Calcium 9.0 Magnesium 1.8 Total Bilirubin 0.3 AST 13 L ALT 25 Alkaline Phosphatase 115 C-Reactive Protein 17.08 H Total Protein 8.2 Albumin 2.9 L Lipase 24 Procalcitonin < 0.1 01/14/23 12:00 WBC 14.35 H RBC 4.36 Hgb 12.8 L Hct 38.8 L MCV 89 MCH 29.4 MCHC 33.0 RDW 13.7 Plt Count 349 MPV 10.7 Immature Gran % 0.3 Neutrophils % 71.3 Lymphocytes % 19.1 Monocytes % 8.0 Eosinophils % 1.0 Basophils % 0.3 Nucleated RBC % 0.0 Absolute Neutrophils 10.23 H Absolute Lymphocytes 2.74 Absolute Monocytes 1.15 H Absolute Eosinophils 0.14 Absolute Basophils 0.04 ESR Sodium Potassium Chloride Carbon Dioxide Anion Gap BUN Creatinine Est GFR (CKD-EPI 2020) Glucose Calcium Magnesium Total Bilirubin AST ALT Alkaline Phosphatase C-Reactive Protein Total Protein Albumin Lipase Procalcitonin Last Vital Signs Temp 99.0 F 01/14/23 14:49 Pulse 93 H 01/14/23 14:49 Resp 17 01/14/23 14:49 BP 97/66 L 01/14/23 14:49 Pulse Ox 98 01/14/23 14:49 Time Spent Time spent with Patient: 40-54 minutes Time was spent: preparing to see the patient(eg.review tests), obtaining and/or reviewing separately otained hiistory, ordering medications,tests, procedures, indepentently interpreting results and counseling the patient
[2023-01-14 18:00] LABS: Bilirubin Small (Negative); Blood Small (Negative); Clarity Clear (Clear); Glucose Negative (Negative); Ketones 15 mg/dL (Negative); Leukocyte Esterase Negative (Negative); Nitrite Negative (Negative); Urobilinogen 0.2 mg/dL (Up to 0.2); pH 6.5 (5-8)
[2023-01-14 18:09] LABS: Bacteria Rare HPF (Negative); C & S Indicated? No; Crystals Negative HPF (Negative); Epithelial Cells Rare HPF (Negative); Mucus Trace (Negative); WBC Negative HPF (0-5)
[2023-01-14] MEDS: Acetaminophen 500 MG TAB 1000 MG PO (18:25)
[2023-01-14] MEDS: Enoxaparin 40 MG/0.4 ML SYR SC (18:25)
[2023-01-14] MEDS: Lactated Ringers 1,000 ML 75 ML IV (18:25)
[2023-01-14] MEDS: PIPERACILLIN/TAZO 3.375 GM in Normal Saline 50 ML IVPB (20:32)
[2023-01-14] MEDS: Normal Saline Flush 10 ML SYR IVP (20:34)
[2023-01-14] MEDS: Normal Saline 500 ML 20 ML IV (20:34)
[2023-01-15] VITALS (12 sets, daily range): BP systolic 94–118; BP diastolic 57–85; PULSE 72–92; RESP 10–20; TEMP 36.3–37.5; TEMPC 36.5; O2SAT 97–100; BMI 20.5
[2023-01-15] MEDS: Acetaminophen 500 MG TAB 1000 MG PO ×3 (01:41→17:54)
[2023-01-15] MEDS: PIPERACILLIN/TAZO 3.375 GM in Normal Saline 50 ML IVPB ×4 (01:44→20:09)
[2023-01-15 06:58] LABS: Abs Immature Grans 0.03 10^3/uL (0.0-0.06); Absolute Basophil Count 0.05 10^3/uL (0.0-0.2); Absolute Eosinophil Count 0.17 10^3/uL (0.0-0.7); Absolute Lymphocyte Count 2.13 10^3/uL (1.2-3.4); Absolute Monocyte Count 0.97 10^3/uL (0.1-0.8); Absolute Neutrophil Count 7.98 10^3/uL (1.2-6.7); Basophils % 0.4; Eosinophils % 1.5; HCT 37.2 % (40.0-50.0); Immature Grans % 0.3; Lymphocytes % 18.8; MCH 29.3 pg (27.0-33.0); MCHC 32.3 % (32.0-36.0); MCV 91 fL (80-95); MPV 11.7 fL (8.0-11.0); Monocytes % 8.6; Neutrophils % 70.4; Platelet Count 280 10^3/uL (130-400); RDW 14.1 % (11.8-14.1); RDW-SD 47.3 fL; WBC 11.33 10^3/uL (4.4-10.8)
[2023-01-15 07:15] LABS: Anion Gap 12.1 mmol/L (3-11); BUN 12 mg/dL (7-18); CO2 22.9 mmol/L (21.0-32.0); CREATININE 0.7 mg/dL (0.70-1.30); Chloride 102 mmol/L (98-107); Glucose 55 mg/dL (74-106); Potassium 3.6 mmol/L (3.5-5.1); Sodium 137 mmol/L (136-145)
--- NOTE | 2023-01-15 09:02 | PDOC.CMIN ---
Date of service: 01/15/23 Time of Service: 09:02 Care Management Initial Assmt Initial Assessment REASON FOR HOSPITALIZATION:: abscess of skin and subcutaneous tissue PREVIOUS FUNCTIONAL STATUS/SOCIAL/FAMILY SUPPORTS:: Carlos Enrique lives in an apartment [place] with his brother and his brother's and 3 children. Carlos Enrique does not have any children of his own. 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 Carlos Enrique identified that he recently changed jobs and does not currently have insurance. He is independent at baseline and does not receive any services. CURRENT FUNCTIONAL STATUS:: Carlos Enrique was sitting up in bed when CM met with him. He was polite and agreeable to conversation. Carlos Enrique described the course of his illness which began a few months ago. He was found to have an intra-abdominal abscess which was drained at [facility]. Since then he has had a bowel resection in [place] and is now found to have another abscess. He is concerned about not having insurance. CM provided him with a Patient Financial Assist packet. Carlos Enrique will have [employer] insurance that will become effective on February 05. ADVANCE DIRECTIVES:: none on file Has patient been provided with info about the portal/API?: Yes Did the patient sign up for the portal?: No CODE STATUS:: Full Code INSURANCE COVERAGE / FINANCIAL ISSUES:: self pay - will have [employer] on February 05 provided with patient Financial Assist packet. CURRENT HOME/COMMUNITY SERVICES/EQUIPMENT:: none currently PRIMARY CARE PHYSICIAN:: Michael Razo POTENTIAL DISCHARGE NEEDS:: follow up with surgery, PCP and plan off care PATIENT/FAMILY EDUCATION NEEDS:: Review of discharge instructions, limitations, activity, follow up plan, discuss Ask Me Three TRANSPORTATION:: via private vehicle with family PLAN:: Anticipate Carlos Enrique will be discharged home with no new services when medically cleared by provider. he will follow up with surgery and his PCP and plan of care and transport with family. CM will support Carlos Enrique and assess for discharge needs. PFSH All Active Problems Hx of abdominal abscess (Acute) Abscess of skin and subcutaneous tissue (Acute) Intraperitoneal abscess (Acute) Social History Smoking/Tobacco Use Status: Unknown Smoking risk assessment performed?: Yes Alcohol Intake: never Substance use type: does not use Current gender identity: male Do you feel safe at home: Yes Do you feel safe in your relationship?: Yes
[2023-01-15] MEDS: Normal Saline Flush 10 ML SYR IVP (09:11)
[2023-01-15] MEDS: Lactated Ringers 1,000 ML 75 ML IV (10:55)
--- NOTE | 2023-01-15 10:58 | ANES.PREOP_ITS ---
General Info Date of Service Date Performed: 01/15/23 Height: 5 ft 6 in Weight: 57.561 kg Body Mass Index (BMI): 20.5 Surgical Procedure: Operation Date: 01/15/23 12:10 Proposed Procedure Side Surgeon p I&D of Abscess on Abdomen Tray Monroy MD Meds Allergies and Home Medications Allergies Allergy/AdvReac Type Severity Reaction Status Date / Time No Known Allergies Allergy Unverified 01/14/23 17:46 Home Medication Medication Instructions Recorded ibuprofen 200 mg capsule 400 mg PO Q6H PRN 08/27/22 Current Visit Medications: Current Medications Generic Name Dose Route Start Last Admin Trade Name Freq PRN Reason Stop Dose Admin Acetaminophen 1,000 mg 01/14/23 18:00 01/15/23 09:11 Acetaminophen 500 Mg Tab PO 1,000 mg Q8H TALA Administration Enoxaparin Sodium 40 mg 01/14/23 18:00 01/14/23 18:25 Enoxaparin 40 Mg/0.4 Ml Syr SC 40 mg Q24H TALA Administration Sodium Chloride 500 mls @ 0 mls/hr 01/14/23 11:48 01/14/23 21:20 Saline 500ml Bag IV 0 mls/hr PRN PRN Infusion As Directed Ringer's Solution 1,000 mls @ 75 mls/hr 01/14/23 17:45 01/15/23 10:55 IV 75 mls/hr INFUSION TALA Administration Piperacillin Sod/Tazobactam 50 mls @ 100 mls/hr 01/14/23 20:00 01/15/23 09:11 Sod 3.375 gm/ Sodium Chloride IVPB 100 mls/hr Q6H TALA Administration Protocol IV Miscellaneous Supplies 1 each 01/14/23 17:45 Iv Access IV DIRECTED TALA Morphine Sulfate 2 mg 01/14/23 17:39 Morphine 2 Mg/Ml Syr IVP Q1H PRN PRN Ondansetron HCl 4 mg 01/14/23 17:39 Ondansetron 4 Mg/2 Ml Vial IVP Q4H PRN PRN Sodium Chloride 0 ml 01/14/23 13:22 Normal Saline Flush 10 Ml Syr IVP PRN PRN PFSH Active Problems Active Problems: Problem Status Onset Code Hx of abdominal abscess Z87.898 Abscess of skin and subcutaneous tissue L02.91 Intraperitoneal abscess K65.1 Tobacco Smoking/Tobacco Use Status: Unknown Alcohol Alcohol Intake: never Substance Use Substance use type: does not use Vital Signs and Lab Results Vital Signs Most Recent Vital Signs in EMR: Most Recent Vital Signs Temp Pulse Resp BP Pulse Ox 36.3 C L 88 14 103/67 100 01/15/23 09:09 01/15/23 09:09 01/15/23 09:09 01/15/23 09:09 01/15/23 09:09 Lab Results 01/15/23 06:14 01/15/23 06:14 Blood Type / Crossmatch: No Data to Display Complete Blood Count: White Blood Count 11.33 10^3/uL (4.4-10.8) H 01/15/23 06:14 Red Blood Count 4.10 10^6/uL (4.36-5.78) L 01/15/23 06:14 Hemoglobin 12.0 g/dL (13.5-17.5) L 01/15/23 06:14 Hematocrit 37.2 % (40.0-50.0) L 01/15/23 06:14 Platelet Count 280 10^3/uL (130-400) 01/15/23 06:14 Complete Metabolic Panel: Sodium 137 mmol/L (136-145) 01/15/23 06:14 Potassium 3.6 mmol/L (3.5-5.1) 01/15/23 06:14 Chloride 102 mmol/L (98-107) 01/15/23 06:14 Carbon Dioxide 22.9 mmol/L (21.0-32.0) 01/15/23 06:14 BUN 12 mg/dL (7-18) 01/15/23 06:14 Creatinine 0.7 mg/dL (0.70-1.30) 01/15/23 06:14 Est GFR (CKD-EPI 2020) 120.20 (mL/min/1.73m2) 01/15/23 06:14 Magnesium 1.8 mg/dL (1.8-2.4) 01/14/23 12:00 Calcium 9.0 mg/dL (8.5-10.1) 01/15/23 06:14 Albumin 2.9 g/dL (3.4-5.0) L 01/14/23 12:00 Glucose 55 mg/dL (74-106) L 01/15/23 06:14 C-Reactive Protein 17.08 mg/dL (0.0-0.3) H 01/14/23 12:00 Liver Function Panel: Alanine Aminotransferase (ALT/SGPT) 25 U/L (16-63) 01/14/23 12: 00 Aspartate Amino Transf (AST/SGOT) 13 U/L (15-37) L 01/14/23 12: 00 Coagulation Panel: No Data to Display Cardiac Panel: No Data to Display Arterial Blood Gas: No Data to Display Venous Blood Gas: No Data to Display Pancreas Panel: Lipase 24 U/L (16-77) 01/14/23 12:00 Thyroid Panel: No Data to Display Infectious Disease: No Data to Display Blood Cultures: No Data to Display Toxicology Panel: No Data to Display Anesthesia Assessment and Plan Anesthesia History Personal History: No History of Anesthesia Complications Family History: No Family History of Anesthesia Complications Exercise Tolerance Exercise Tolerance: Metabolic Equivalents>4 Pertinent Negatives Pertinent Negatives: No Symptoms of GERD Cardiac & Pulmonary Exam Cardiac Exam: Normal S1/S2 Heart Sounds Pulmonary Exam: Clear Bilateral Breath Sounds and No cough or Cold Implantable Cardiac Device Does patient have a Pacemaker or an ICD?: No Airway Exam Known Difficult Airway: No Mallampati Class: 1 Mouth Opening: Normal (> 3cm) Thyromental Distance: Greater than 3 cm Neck Range of Motion: Full ROM Neck Circumference: Normal Teeth Condition: Generalized Poor Dentition, Loose or Chipped and Dental Caries Airway Comments: Chipped teeth throughout the mouth. Missing the majority of upper teeth. ASA Classification ASA Score: ASA 2 Emergency Case?: No NPO Status NPO Status: NPO Clears >2 hours, Solids >8 hours Anesthesia Plan Resuscitation Status: Full Code Anesthesia Technique: General Anesthesia Airway Planned: Natural Airway Monitors Used: Standard Monitors and SedLine Preoperative Comments:: Smoker
--- NOTE | 2023-01-15 11:01 | W.PM.PROGNOT ---
Date of Service Date of service: 01/15/23 Time of Service: 11:01 Assessment and Plan Assessment and plan (1) Abscess of skin and subcutaneous tissue: Status: Acute Assessment and plan: pt is s/p surgery in [place]. Pt doesn't know what was done. Attempt to obtain op reports and path reports. Question if this is due to Crohn's Dx. Which puts pt at high risk for fistula formation. The plan today per Dr. Monroy is just to I&D the local area for infection control. If this is a fistula, we would have to do further imaging to see exactly where this is, but overall managment would be conservative and wait and see if the fistula will close on it's own vs delayed operative management. Pt is on Zosyn for infection. NPO Further recommendations depending on operative feedings today and when we can obtain path reports from his prior operation (2) Intraperitoneal abscess: Status: Acute (3) Hx of abdominal abscess: Status: Acute Subjective Subjective Interval history since last seen: Pt is doing well. no headaches. No CP or SOB. no productive cough. no dysuria. no leg pain or swelling. Pt has mild pain in RLQ. mostly c/o hunger and wants to eat Exam Const General: cooperative, comfortable and no acute distress Orientation: alert, awake and oriented x3 Other: heent- no jaundice. poor dentition L: cta b/l cardio- r/r/r abdom- pain in RLQ le- no c/c/e Objective Last Vital Signs Temp 36.3 C L 01/15/23 09:09 Pulse 88 01/15/23 09:09 Resp 14 01/15/23 09:09 BP 103/67 01/15/23 09:09 Pulse Ox 100 01/15/23 09:09 Laboratory Results - last 24 hr 01/14/23 01/14/23 01/14/23 12:00 12:00 12:00 WBC RBC Hgb Hct MCV MCH MCHC RDW Plt Count MPV Immature Gran % Neutrophils % Lymphocytes % Monocytes % Eosinophils % Basophils % Nucleated RBC % Absolute Neutrophils Absolute Lymphocytes Absolute Monocytes Absolute Eosinophils Absolute Basophils ESR 66 H Sodium 137 Potassium 3.1 L Chloride 98 Carbon Dioxide 29.8 Anion Gap 9.2 BUN 6 L Creatinine 0.8 Est GFR (CKD-EPI 2020) 115.45 Glucose 95 Calcium 9.0 Magnesium 1.8 Total Bilirubin 0.3 AST 13 L ALT 25 Alkaline Phosphatase 115 C-Reactive Protein 17.08 H Total Protein 8.2 Albumin 2.9 L Lipase 24 Procalcitonin < 0.1 Urine Color Urine Clarity Urine pH Ur Specific [place] Urine Protein Urine Ketones Urine Blood Urine Nitrite Urine Bilirubin Urine Urobilinogen Ur Leukocyte Esterase Urine RBC Urine WBC Ur Epithelial Cells Urine Crystals Urine Bacteria Urine Mucus Ur Culture Indicated? Urine Glucose 01/14/23 01/14/23 01/15/23 12:00 17:50 06:14 WBC 14.35 H RBC 4.36 Hgb 12.8 L Hct 38.8 L MCV 89 MCH 29.4 MCHC 33.0 RDW 13.7 Plt Count 349 MPV 10.7 Immature Gran % 0.3 Neutrophils % 71.3 Lymphocytes % 19.1 Monocytes % 8.0 Eosinophils % 1.0 Basophils % 0.3 Nucleated RBC % 0.0 Absolute Neutrophils 10.23 H Absolute Lymphocytes 2.74 Absolute Monocytes 1.15 H Absolute Eosinophils 0.14 Absolute Basophils 0.04 ESR Sodium 137 Potassium 3.6 Chloride 102 Carbon Dioxide 22.9 Anion Gap 12.1 H BUN 12 Creatinine 0.7 Est GFR (CKD-EPI 2020) 120.20 Glucose 55 L Calcium 9.0 Magnesium Total Bilirubin AST ALT Alkaline Phosphatase C-Reactive Protein Total Protein Albumin Lipase Procalcitonin Urine Color Yellow Urine Clarity Clear Urine pH 6.5 Ur Specific [place] 1.010 Urine Protein 100 H Urine Ketones 15 H Urine Blood Small H Urine Nitrite Negative Urine Bilirubin Small H Urine Urobilinogen 0.2 Ur Leukocyte Esterase Negative Urine RBC 3-5 H Urine WBC Negative Ur Epithelial Cells Rare Urine Crystals Negative Urine Bacteria Rare Urine Mucus Trace Ur Culture Indicated? No Urine Glucose Negative 01/15/23 06:14 WBC 11.33 H RBC 4.10 L Hgb 12.0 L Hct 37.2 L MCV 91 MCH 29.3 MCHC 32.3 RDW 14.1 Plt Count 280 MPV 11.7 H Immature Gran % 0.3 Neutrophils % 70.4 Lymphocytes % 18.8 Monocytes % 8.6 Eosinophils % 1.5 Basophils % 0.4 Nucleated RBC % 0.0 Absolute Neutrophils 7.98 H Absolute Lymphocytes 2.13 Absolute Monocytes 0.97 H Absolute Eosinophils 0.17 Absolute Basophils 0.05 ESR Sodium Potassium Chloride Carbon Dioxide Anion Gap BUN Creatinine Est GFR (CKD-EPI 2020) Glucose Calcium Magnesium Total Bilirubin AST ALT Alkaline Phosphatase C-Reactive Protein Total Protein Albumin Lipase Procalcitonin Urine Color Urine Clarity Urine pH Ur Specific [place] Urine Protein Urine Ketones Urine Blood Urine Nitrite Urine Bilirubin Urine Urobilinogen Ur Leukocyte Esterase Urine RBC Urine WBC Ur Epithelial Cells Urine Crystals Urine Bacteria Urine Mucus Ur Culture Indicated? Urine Glucose Time Spent with Patient Time Spent with Patient: 35-49 minutes Time was spent: preparing to see the patient(eg.review tests), obtaining and/or [facility], ordering medications,tests, procedures, referring, communicating with other health school child care attendant, indepentently interpreting results, counseling the patient and care coordination
--- NOTE | 2023-01-15 12:35 | ROE_ITS ---
Date of service: 01/15/23 Time of Service: 12:35 Operative Note Operative Note DATE OF PROCEDURE: 01/15/23 PRE-OP DIAGNOSIS: Right lower quadrant abscess POST-OP DIAGNOSIS: same PROCEDURE: Incision and drainage of right lower quadrant abscess SURGEON: Tray Monroy ANESTHESIA TYPE: Local By Surgeon and MAC Refer to Anesthesia Record ESTIMATED BLOOD LOSS: 10 PATHOLOGY: other (Aerobic and anaerobic cultures, tissue for Gram stain and culture) COMPLICATIONS: None Patient was transported to: PACU Patient's condition: stable Indications: Carlos Enrique is a 37-year-old male who recently underwent laparotomy with small bowel resection and incidental appendectomy at a different hospital. He was discharged home, and has been doing okay for the past week and a half. He developed right lower quadrant pain yesterday, and came to our emergency department. CAT scan shows an abscess in the superficial tissues of the right lower quadrant. It is in the area relatively close to his previous small bowel resection, it is difficult to say whether or not this connects to the deeper tissues. Regardless, he has tenderness and leukocytosis. Therefore we dis cussed the risks and benefits of incision and drainage, especially with regards to diagnostics and tissue culture Findings: Right lower quadrant abscess cavity Procedure Description: After induction of monitored anesthetic care, I prepped and draped the right lower quadrant in the usual fashion, over the area of maximal tenderness. Next, I made a small elliptical incision and dissected down through the skin and subcutaneous tissues. Towards the base of this layer, I encountered a thick inflammatory rind. Is difficult to say whether or not this is superficial to the rectus muscle complex, or perhaps within it. CAT scan suggest that it is superficial. Regardless, I continued the dissection downward through the rind, and entered the cavity that was approximately 4 cm x 4 cm. Although there was some purulent fluid, majority of the cavity seem to contain gas. Specimens were obtained for aerobic and anaerobic culture, and a small portion of tissue was mechanically debrided up for culture as well. The wound was irrigated. There was no bleeding. It was gently packed with 1 inch iodoform packing. Bandages were applied, the patient was allowed awaken from his anesthetic, he was transferred to the recovery unit.
[2023-01-15] MEDS: fentaNYL 100 MCG/2 ML VIAL IVP (12:52)
--- NOTE | 2023-01-15 13:26 | W.ANESPOSTOP ---
Postoperative Evaluation Date, Time and Location Date Performed: 01/15/23 Time Performed: 12:50 Patient Location: PACU Vital Signs Most Recent Imported Vital Signs: Most Recent Vital Signs Temp Pulse Resp BP Pulse Ox 36.3 C L 84 16 111/74 97 01/15/23 13:24 01/15/23 13:24 01/15/23 13:24 01/15/23 13:24 01/15/23 13:24 Most Recent Manually Entered Vital Signs: Adult Blood Pressure: 110/64 Heart Rate: 72 Respirations: 16 Oxygen Saturation (%): 100 Temperature (C): 36.5 C Pain Score (0-10 Scale): 3 Pain Score Most Recent Pain Score: Most Recent Pain Score Pain Level 3 01/15/23 13:00 Assessment Mental Status: Awake (Alert & Oriented to Patient Baseline) Airway and Respiratory Function: Patent airway with normal (patient baseline) respiratory exam Cardiovascular Function: Hemodynamically Stable Hydration Status: Adequately Hydrated Nausea & Vomiting: No Nausea or Vomiting Pain: Pain is tolerable per patient Peripheral Nerve Block: Patient did not receive a nerve block
--- NOTE | 2023-01-15 14:32 | CHAPLAIN ---
I had a brief visit with Carlos Enrique, introduced myself and explained my role. He was being taken downstairs for test.
[2023-01-15] MEDS: Enoxaparin 40 MG/0.4 ML SYR SC (17:54)
[2023-01-15] MEDS: Ketorolac 15 MG/ML VIAL IVP (21:23)
[2023-01-16] MEDS: Acetaminophen 500 MG TAB 1000 MG PO ×3 (02:18→20:06)
[2023-01-16] MEDS: PIPERACILLIN/TAZO 3.375 GM in Normal Saline 50 ML IVPB ×4 (02:18→19:53)
[2023-01-16] MEDS: Ketorolac 15 MG/ML VIAL IVP ×3 (04:09→15:08)
[2023-01-16 06:50] LABS: Abs Immature Grans 0.04 10^3/uL (0.0-0.06); Absolute Eosinophil Count 0.17 10^3/uL (0.0-0.7); Absolute Lymphocyte Count 1.83 10^3/uL (1.2-3.4); Basophils % 0.2; Eosinophils % 1.4; HCT 36.8 % (40.0-50.0); HGB 12.2 g/dL (13.5-17.5); Immature Grans % 0.3; Lymphocytes % 15.1; MCH 29.8 pg (27.0-33.0); MCHC 33.2 % (32.0-36.0); MCV 90 fL (80-95); MPV 11.6 fL (8.0-11.0); Monocytes % 8.1; Neutrophils % 74.9; Platelet Count 224 10^3/uL (130-400); RDW-SD 46.3 fL; WBC 12.15 10^3/uL (4.4-10.8)
[2023-01-16 06:53] LABS: Absolute Basophil Count 0.02 10^3/uL (0.0-0.2); Absolute Monocyte Count 0.98 10^3/uL (0.1-0.8)
[2023-01-16 07:02] LABS: Anion Gap 8.8 mmol/L (3-11); BUN 7 mg/dL (7-18); CO2 26.2 mmol/L (21.0-32.0); CREATININE 0.8 mg/dL (0.70-1.30); Calcium 8.8 mg/dL (8.5-10.1); Chloride 103 mmol/L (98-107); Estimated GFR 115.45 (mL/min/1.73m2); Glucose 87 mg/dL (74-106); Potassium 3.5 mmol/L (3.5-5.1); Sodium 138 mmol/L (136-145)
[2023-01-16 07:06] LABS: C-Reactive Protein 14.36 mg/dL (0.0-0.3)
[2023-01-16 07:20] VITALS: BP 103/69; PULSE 85; RESP 18; TEMP 37.4; O2SAT 99
--- NOTE | 2023-01-16 07:53 | W.PM.PROGNOT ---
Date of Service Date of service: 01/16/23 Time of Service: 06:30 Assessment and Plan Assessment and plan (1) Enterocutaneous fistula: Status: Acute Assessment and plan: Mr. Marcial is a 37-year-old gentleman who ended up having surgery somewhere in [place] when he was on the road due to right lower quadrant abdominal pain. Dr. Monroy was able to talk to the surgeon in [place] who stated that he removed some distal ileum that was inflamed and necrotic appearing. They also did an incidental epic that ectomy. Per the surgical report the anastomosis is quite close to the cecum. Pathology report port was reviewed. It showed inflammation. Discussed with the patient that he is only 2 weeks out from his last surgery and at this point has created a communication between the small intestine and his skin. After looking at the operative report and the pathology report I feel that it would be a best if we just placed an ostomy bag over the fistula to contain the drainage. He had some blood drawn to look for any indications of possible Crohn's or UC. If the patient does have an autoimmune disease then that needs to be treated prior to trying to deal with the enterocutaneous fistula. The fistula may heal on its own. He may be a candidate to be put on TPN so that the fistula can heal. At this point my plan is to control his infection, control of the output from the fistula and once stable hopefully get him home. We will set him up with a appointment with gastroenterology as well as colorectal surgery down at [facility]. The patient will need home health when he goes home as well as ostomy supplies. Subjective Subjective Interval history since last seen: Carlos Enrique states he is feeling a little better than when he came into the hospital on the . He went to surgery yesterday for an I&D of an abscess. He had a 1 inch packing placed. The patient denies any nausea or vomiting. He has had a very small BM today. He denies fevers. Aerobic and anaerobic cultures are pending at this time. His white count is slightly elevated today. Exam Const General: no acute distress Nutritional Appearance: thin Orientation: alert and oriented x3 HENMT Head: normocephalic and atraumatic Resp Effort & Inspection: normal respiratory effort Auscultation: clear to auscultation bilaterally Cardio Rate: regular rate Rhythm: regular rhythm GI Inspection: incision (healing midline incision.) Palpation: soft and tender in the RLQ Auscultation: normal bowel sounds Other: RLQ wound-the 4 x 4's that I removed were saturated with what she was suspicious for stool mixed with blood. As soon as I removed the packing there was loose stool coming through the incision. This is consistent with her enterocutaneous fistula. An ostomy was applied over the wound Objective Last Vital Signs Temp 98.6 F 01/15/23 20:25 Pulse 85 01/15/23 20:25 Resp 18 01/15/23 20:25 BP 118/85 01/15/23 20:25 Pulse Ox 98 01/15/23 20:25 Laboratory Results - last 24 hr 01/16/23 01/16/23 01/16/23 05:35 06:29 06:29 WBC 12.15 H RBC 4.10 L Hgb 12.2 L Hct 36.8 L MCV 90 MCH 29.8 MCHC 33.2 RDW 14.0 Plt Count 224 MPV 11.6 H Immature Gran % 0.3 Neutrophils % 74.9 Lymphocytes % 15.1 Monocytes % 8.1 Eosinophils % 1.4 Basophils % 0.2 Nucleated RBC % 0.0 Absolute Neutrophils 9.10 H Absolute Lymphocytes 1.83 Absolute Monocytes 0.98 H Absolute Eosinophils 0.17 Absolute Basophils 0.02 Sodium 138 Potassium 3.5 Chloride 103 Carbon Dioxide 26.2 Anion Gap 8.8 BUN 7 Creatinine 0.8 Est GFR (CKD-EPI 2020) 115.45 Glucose 87 Calcium 8.8 C-Reactive Protein 14.36 H Time Spent with Patient Time Spent with Patient: 25-34 minutes Time was spent: obtaining and/or reviewing separately otained hiistory, indepentently interpreting results and counseling the patient
[2023-01-16] MEDS: Protein Nutritional Supplement 16 GM 1 OUNCE PACKET PO ×2 (08:23→19:54)
--- NOTE | 2023-01-16 08:28 | CMPROGNOTE_ITS ---
Date of service: 01/16/23 Time of Service: 08:29 Care Management Progress Note Progress Note Text Progress Note Text: S/O:Carlos Enrique was sitting up in bed when CM met with him. He continues to complain of abdominal pain but indicated that the pain medicine is working. Carlos Enrique informed CM that he received some news from the surgeon that was not what he hoped to hear. He was told he has developed a fistula between his bowel and his skin. While in [place], where he just had surgery, he was told that he did not have Crohn's disease. Today he was told that he might. A GI workup will be needed to diagnose or rule it out. If Carlos Enrique does have Crohns, his fistula cannot be corrected surgically until the Crohn's is treated. He verbalized feeling like this is going to be a long process. If he is going to need to make frequent visits to [facility], Carlos Enrique shared that he plans to stay with his mother in [place]. Per provider, Carlos Enrique will need home health nursing services as he will have an ostomy appliance fitted over his fistula to contain the drainage. A: Carlos Enrique is a 37 year old man admitted on 01/14/23 with a post-surgical abscess P:?Anticipate Carlos Enrique will be discharged home with new home health services for nursing/wound care when medically cleared by provider. He will follow up with surgery and his PCP and plan of care and transport with family. CM will support Carlos Enrique and assess for discharge needs.
--- NOTE | 2023-01-16 13:48 | W.NUTCONSULT ---
Date of service: 01/16/23 Time of Service: 13:48 Nutritional Consult ASSESSMENT: Unable to meet with Carlos Enrique today. Per medical chart, he has had multiple abdominal surgeries in last 5 months secondary to small bowel resection and appendectomy in August 2022, intraperitoneal abscess, now with enterocultaneous fistula with ostomy for drainage. May need TPN for healing. Has lost over 30 pounds in last 5 months with BMI on low end of normal. At high nutritional risk. Estimated Needs: BEE (1477 kcal): x 1.3 = 1920 kcal, 82 g protein, 55 g fat. Following regular meal plan with good intake. Has had BM NUTRITIONAL DIAGNOSIS: acute malnutrition in view of 25% weight loss in last 6 months secondary to multiple abdominal surgeries INTERVENTION: If home TPN considered, would recommend: 4.25/D10 2000 ml run at 83 cc/hour with 20% lipids 250 ml run at 31.5 cc/hour- Will provide 1520 kcal, 84 g protein, 55 g fat. MONITORING AND EVALUATION: weight, po intake, labs Time Spent in Nutritional Counseling and Treatment: 30
[2023-01-16 14:59] LABS: ANCA Interpretation Negative (Negative)
[2023-01-16] MEDS: Nicotine 21 MG/24 HR PATCH TD (15:08)
[2023-01-16 15:14] VITALS: BP 96/64; PULSE 79; RESP 18; TEMP 37.3; O2SAT 98
[2023-01-16 16:17] VITALS: BP 110/72
[2023-01-16] MEDS: Enoxaparin 40 MG/0.4 ML SYR SC (17:47)
[2023-01-17 00:04] VITALS: BP 100/65; PULSE 82; RESP 16; TEMP 37.1; O2SAT 98
[2023-01-17] MEDS: PIPERACILLIN/TAZO 3.375 GM in Normal Saline 50 ML IVPB ×4 (03:19→19:31)
[2023-01-17 06:29] VITALS: BP 98/62; PULSE 91; RESP 18; TEMP 37.2; O2SAT 97
[2023-01-17 06:43] LABS: Abs Immature Grans 0.03 10^3/uL (0.0-0.06); Absolute Basophil Count 0.03 10^3/uL (0.0-0.2); Absolute Eosinophil Count 0.22 10^3/uL (0.0-0.7); Absolute Lymphocyte Count 1.71 10^3/uL (1.2-3.4); Absolute Monocyte Count 0.72 10^3/uL (0.1-0.8); Absolute Neutrophil Count 6.68 10^3/uL (1.2-6.7); Basophils % 0.3; Eosinophils % 2.3; HGB 11.5 g/dL (13.5-17.5); Immature Grans % 0.3; Lymphocytes % 18.2; MCH 29.8 pg (27.0-33.0); MCHC 32.9 % (32.0-36.0); MCV 91 fL (80-95); MPV 11.6 fL (8.0-11.0); Monocytes % 7.7; Neutrophils % 71.2; Platelet Count 244 10^3/uL (130-400); RBC 3.86 10^6/uL (4.36-5.78); RDW 14.1 % (11.8-14.1); RDW-SD 47.1 fL; WBC 9.39 10^3/uL (4.4-10.8)
[2023-01-17 07:01] LABS: C-Reactive Protein 20.43 mg/dL (0.0-0.3)
[2023-01-17 07:03] LABS: Anion Gap 8.1 mmol/L (3-11); BUN 3 mg/dL (7-18); CO2 28.9 mmol/L (21.0-32.0); CREATININE 0.6 mg/dL (0.70-1.30); Calcium 8.9 mg/dL (8.5-10.1); Chloride 103 mmol/L (98-107); Estimated GFR 125.93 (mL/min/1.73m2); Glucose 90 mg/dL (74-106); Magnesium 1.8 mg/dL (1.8-2.4); Potassium 3.1 mmol/L (3.5-5.1); Sodium 140 mmol/L (136-145)
[2023-01-17] MEDS: Nicotine 21 MG/24 HR PATCH TD (07:32)
[2023-01-17] MEDS: Potassium Chloride 20 MEQ TABCR 40 MEQ PO (09:09)
--- NOTE | 2023-01-17 09:35 | W.PM.PROGNOT ---
Date of Service Date of service: 01/17/23 Time of Service: 09:35 Assessment and Plan Assessment and plan (1) Enterocutaneous fistula: Status: Acute Assessment and plan: POD #2 s/p incision and drainage of suspected abscess. 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 He is eating 100% of his meals. He has had some low grade fevers overnight He seems depressed. He is worried about the financial impact as his insurance doesn't kick in until February 05 WBC count is normal today Exam Const General: cooperative, comfortable and no acute distress Nutritional Appearance: thin Orientation: alert and oriented x3 HENMT Head: normocephalic and atraumatic Resp Effort & Inspection: normal respiratory effort Auscultation: clear to auscultation bilaterally Cardio Rate: regular rate Rhythm: regular rhythm Heart Sounds: no gallops, no murmurs and no rubs GI Inspection: other (ostomy bag over enterocutanous fistula) Palpation: soft and tender (along incision) Auscultation: normal bowel sounds Objective Last Vital Signs Temp 99.0 F 01/17/23 06:29 Pulse 91 H 01/17/23 06:29 Resp 18 01/17/23 06:29 BP 98/62 L 01/17/23 06:29 Pulse Ox 97 01/17/23 06:29 Laboratory Results - last 24 hr 01/15/23 01/17/23 01/17/23 11:31 06:15 06:15 WBC RBC Hgb Hct MCV MCH MCHC RDW Plt Count MPV Immature Gran % Neutrophils % Lymphocytes % Monocytes % Eosinophils % Basophils % Nucleated RBC % Absolute Neutrophils Absolute Lymphocytes Absolute Monocytes Absolute Eosinophils Absolute Basophils Sodium 140 Potassium 3.1 L Chloride 103 Carbon Dioxide 28.9 Anion Gap 8.1 BUN 3 L Creatinine 0.6 L Est GFR (CKD-EPI 2020) 125.93 Glucose 90 Calcium 8.9 Magnesium 1.8 C-Reactive Protein 20.43 H ANCA Immunofluorescen Negative ANCA Titer Not Applicable ANCA Pattern Not Applicable 01/17/23 06:15 WBC 9.39 RBC 3.86 L Hgb 11.5 L Hct 35.0 L MCV 91 MCH 29.8 MCHC 32.9 RDW 14.1 Plt Count 244 MPV 11.6 H Immature Gran % 0.3 Neutrophils % 71.2 Lymphocytes % 18.2 Monocytes % 7.7 Eosinophils % 2.3 Basophils % 0.3 Nucleated RBC % 0.0 Absolute Neutrophils 6.68 Absolute Lymphocytes 1.71 Absolute Monocytes 0.72 Absolute Eosinophils 0.22 Absolute Basophils 0.03 Sodium Potassium Chloride Carbon Dioxide Anion Gap BUN Creatinine Est GFR (CKD-EPI 2020) Glucose Calcium Magnesium C-Reactive Protein ANCA Immunofluorescen ANCA Titer ANCA Pattern Time Spent with Patient Time Spent with Patient: 25-34 minutes Time was spent: ordering medications,tests, procedures, indepentently interpreting results and counseling the patient
--- NOTE | 2023-01-17 09:56 | PDOC.HHF2F_ITS ---
Home Health Referral Registered Nurse: Check all that apply Instruct on ostomy care: Ordered (new ostomy over enterocutanous fistula) Home Bound Status Describe why leaving home would require a considerable and taxing effort: Side effects from pain medication (sedation/drowsiness) Encounter Date and Reason: I certify that a FTF encounter for this patient was performed on January 17, 2023 and that such encounter was related to the primary reason the patient requires home health services. The encounter was conducted in the following manner: * By me as the certifying physician, PUBLIC RELATIONS ASSOCIATE, PA or * By an inpatient physician, PUBLIC RELATIONS ASSOCIATE or PA during an inpatient stay who communicated findings to me, Certification And Authentication I certify that I composed the above information based on my clinical judgment r elating to this patient's medical condition and, if applicable, clinical findings communicated to me by the NPP or inpatient physician who performed the FTF encounter. Name of Provider that will be monitoring home health services: Ariane Bethea
[2023-01-17] MEDS: Fluconazole 100 MG TAB 800 MG PO (11:06)
[2023-01-17] MEDS: Normal Saline Flush 10 ML SYR IVP (14:34)
[2023-01-17] MEDS: Acetaminophen 500 MG TAB 1000 MG PO ×2 (14:34→22:41)
[2023-01-17 15:10] VITALS: BP 106/72; PULSE 87; RESP 16; TEMP 37.2; O2SAT 97
[2023-01-17 15:44] VITALS: O2SAT 97
[2023-01-17] MEDS: Enoxaparin 40 MG/0.4 ML SYR SC (18:07)
[2023-01-17] MEDS: Protein Nutritional Supplement 16 GM 1 OUNCE PACKET PO (19:31)
[2023-01-17 23:25] VITALS: BP 112/73; PULSE 80; RESP 16; TEMP 37.1; O2SAT 98
[2023-01-18] MEDS: PIPERACILLIN/TAZO 3.375 GM in Normal Saline 50 ML IVPB ×2 (02:45→08:09)
[2023-01-18 06:17] VITALS: BP 113/73; PULSE 71; RESP 20; TEMP 36.2; O2SAT 97
[2023-01-18 07:20] VITALS: BP 113/81; PULSE 90; RESP 18; TEMP 37.1; O2SAT 99
[2023-01-18 07:37] LABS: Abs Immature Grans 0.02 10^3/uL (0.0-0.06); Absolute Basophil Count 0.02 10^3/uL (0.0-0.2); Absolute Eosinophil Count 0.37 10^3/uL (0.0-0.7); Absolute Lymphocyte Count 2.03 10^3/uL (1.2-3.4); Absolute Monocyte Count 0.58 10^3/uL (0.1-0.8); Absolute Neutrophil Count 4.57 10^3/uL (1.2-6.7); Basophils % 0.3; Eosinophils % 4.9; HCT 36.8 % (40.0-50.0); HGB 12.1 g/dL (13.5-17.5); Immature Grans % 0.3; Lymphocytes % 26.7; MCH 29.8 pg (27.0-33.0); MCHC 32.9 % (32.0-36.0); MCV 91 fL (80-95); MPV 11.5 fL (8.0-11.0); Monocytes % 7.6; Neutrophils % 60.2; Platelet Count 268 10^3/uL (130-400); RBC 4.06 10^6/uL (4.36-5.78); RDW 13.7 % (11.8-14.1); RDW-SD 46.3 fL; WBC 7.59 10^3/uL (4.4-10.8)
[2023-01-18 07:49] LABS: Anion Gap 9.3 mmol/L (3-11); BUN 4 mg/dL (7-18); CO2 30.7 mmol/L (21.0-32.0); CREATININE 0.7 mg/dL (0.70-1.30); Calcium 9.4 mg/dL (8.5-10.1); Chloride 104 mmol/L (98-107); Glucose 85 mg/dL (74-106); Potassium 3.2 mmol/L (3.5-5.1); Sodium 144 mmol/L (136-145)
[2023-01-18 07:54] LABS: C-Reactive Protein 15.51 mg/dL (0.0-0.3)
[2023-01-18] MEDS: Nicotine 21 MG/24 HR PATCH TD (08:10)
[2023-01-18] MEDS: Fluconazole 100 MG TAB 400 MG PO (08:10)
[2023-01-18] MEDS: Normal Saline Flush 10 ML SYR IVP (08:11)
[2023-01-18] MEDS: Acetaminophen 500 MG TAB 1000 MG PO (08:14)
--- NOTE | 2023-01-18 11:22 | W.PM.PROGNOT ---
Date of Service Date of service: 01/18/23 Time of Service: 11:22 Assessment and Plan Assessment and plan (1) Enterocutaneous fistula: Status: Acute Assessment and plan: POD #3 s/p incision and drainage of suspected abscess. 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 He has no complaints. He is eating. He has been up and walking. He he has been emptying his Ostomy bags himself. Exam Const General: cooperative, comfortable and no acute distress Orientation: alert and oriented x3 HENMT Head: normocephalic and atraumatic Resp Effort & Inspection: normal respiratory effort Auscultation: clear to auscultation bilaterally Cardio Rate: regular rate Rhythm: regular rhythm GI Palpation: soft, no hepatosplenomegaly and tender (tender around the enterocutanous fistula and his midline incision) Other: enterocutanous fistula- liquid stool in the bag. 50 cc Objective Last Vital Signs Temp 98.8 F 01/18/23 07:20 Pulse 90 01/18/23 07:20 Resp 18 01/18/23 07:20 BP 113/81 01/18/23 07:20 Pulse Ox 99 01/18/23 07:20 Laboratory Results - last 24 hr 01/18/23 01/18/23 01/18/23 06:20 06:20 06:20 WBC 7.59 RBC 4.06 L Hgb 12.1 L Hct 36.8 L MCV 91 MCH 29.8 MCHC 32.9 RDW 13.7 Plt Count 268 MPV 11.5 H Immature Gran % 0.3 Neutrophils % 60.2 Lymphocytes % 26.7 Monocytes % 7.6 Eosinophils % 4.9 Basophils % 0.3 Nucleated RBC % 0.0 Absolute Neutrophils 4.57 Absolute Lymphocytes 2.03 Absolute Monocytes 0.58 Absolute Eosinophils 0.37 Absolute Basophils 0.02 Sodium 144 Potassium 3.2 L Chloride 104 Carbon Dioxide 30.7 Anion Gap 9.3 BUN 4 L Creatinine 0.7 Est GFR (CKD-EPI 2020) 120.20 Glucose 85 Calcium 9.4 Magnesium 2.0 C-Reactive Protein 15.51 H Time Spent with Patient Time Spent with Patient: 25-34 minutes Time was spent: obtaining and/or reviewing separately otained hiistory, ordering medications,tests, procedures, indepentently interpreting results, counseling the patient and care coordination
[2023-01-18 15:12] VITALS: BP 105/72; PULSE 82; RESP 16; TEMP 36.6; O2SAT 97
[2023-01-18] MEDS: Enoxaparin 40 MG/0.4 ML SYR SC (17:44)
[2023-01-18] MEDS: Amoxicillin 875/Clav. 125 TAB PO (19:51)
[2023-01-19 06:24] VITALS: BP 103/72; PULSE 79; RESP 16; TEMP 36.4; O2SAT 98
[2023-01-19] MEDS: Fluconazole 100 MG TAB 400 MG PO (07:37)
[2023-01-19] MEDS: Amoxicillin 875/Clav. 125 TAB PO (07:37)
[2023-01-19] MEDS: Nicotine 21 MG/24 HR PATCH TD (07:44)
[2023-01-19] MEDS: Ibuprofen 600 MG TAB PO (11:53)
--- NOTE | 2023-01-19 13:44 | PDOC.CMPRO ---
Date of service: 01/19/23 Time of Service: 13:44 Care Management Progress Note Progress Note Text Progress Note Text: S/O:Carlos Enrique was sitting up in bed when CM met with him. He continues to complain of abdominal pain stating that it is about 5/10 today but did state that it was almost zero yesterday. Carlos Enrique reported that he is able to empty the ostomy bag over his fistula but that he cannot change the appliance itself. His plan remains to go to his mother's house in [place] when he is discharged. CM will coordinate with the local [facility] to initiate services for Carlos Enrique there. He will need nursing for help with his fistula and the ostomy appliance over it. Carlos Enrique is unsure when he will be discharged or how he will get to his mother's home. When asked, he responded I guess someone will just have to come and get me. A: Carlos Enrique is a 37 year old man admitted on 01/14/23 with a post-surgical abscess P:?Anticipate Carlos Enrique will be discharged to his mother's home in [place] with? [facility] for nursing/wound care. He will follow up with surgery and his PCP and plan of care and transport with family. CM will support Carlos Enrique and assess for discharge needs.
--- NOTE | 2023-01-19 13:46 | W.NUTRFU ---
Date of service: 01/19/23 Time of Service: 13:46 Nutrition Note NOTE: CarlosE nrique has been following a high calorie/high protein diet with excellent intake. Will be going home soon, able to change own ostomy bag, no excessive loses reported. Will continue to follow and support. Time Spent in Nutritional Counseling and Treatment: 5
--- NOTE | 2023-01-19 15:10 | W.PM.DSUDISC ---
Date of service: 01/19/23 Time of Service: 15:10 Discharge Plan Disposition Patient Disposition: Home W/Home Health Services Condition: Fair Discharge Details Reason For Visit: Post Surgical Abscess Admit Date/Time: 01/17/23 15:00 Admit Provider: Tray Monroy Attending Provider: Tray Monroy Primary Care Provider: Michael Razo Hospital Course Hospital Course: Carlos Enrique is a 37 year old male with a history of peritonitis from uncertain etiology in [facility]. More recently, he underwent laparotomy with segmental small bowel resection and incidental appendectomy at a different hospital. He was discharged home and before any formal follow up he presented to the ED with abdominal pain. CT scan showed plegmon and superficial abscess in the right lower quadrant. He underwent drainage of the abscess. Culture data is polymicrobial. Within 24 hours, stool drained from the abscess consistent with enterocutaneous fistula. Presumptive diagnosis from clinical history and path fro his surgical resuscitation was crohns disease. He was started on broad spectrum antibiotics. Fistula was managed with stoma device and he was referred to [facility] for definitive treatment. He was stable for discharge and outpatient management on 01/19. Home Meds and New Rx's Prescriptions: New fluconazole 100 mg Tablet 400 mg PO DAILY Qty: 14 0RF Rx Instructions: take one tablet by mouth every day nicotine 21 mg/24 hr Patch 24 Hour 21 mg transdermal DAILY Qty: 14 0RF Rx Instructions: apply as directed amoxicillin-pot clavulanate 875-125 mg Tablet 1 tab PO BID Qty: 28 0RF Rx Instructions: Take one tablet by mouth in the morning and one in the evening. Continued ibuprofen 200 mg capsule 400 mg PO Q6H PRN Discharge Instructions Additional Instructions: Carlos Enrique, you have been diagnosed with an enterocutaneous fistula, which is an abnormal connection between your intestines and the skin. These can occur as a complication of your surgery, and they are oftentimes seen in patients that have crohnes disease. The first line of treatment is to ensure adequate drainage and minimize infection. Please continue taking the prescribed antibiotics. We have arranged a home health nurse to assist with managing the drainage. We would like to see you on 01/30 at 11 in our surgical office. Referrals: Ariane Bethea MD [ [facility] STAFF PHYSICIAN] - (01/30 at 11 AM) Activity:: Activity as Tolerated Equipment/Supplies:: 1 week stoma supplies Diet:: As Tolerated DS: Diagnosis Discharge Diagnosis (1) Enterocutaneous fistula: Status: Acute Asessment and Plan: Continue amoxicillin/clavulanate as outpatient. Follow up 01/30 at 11 AM in the surgical office
--- NOTE | 2023-01-19 15:30 | W.PM.PROGNOT ---
Date of Service Date of service: 01/19/23 Time of Service: 15:30 Assessment and Plan Assessment and plan (1) Enterocutaneous fistula: Status: Acute Assessment and plan: I explained the nature of enterocutaneous fistula, and how it may be a result of his recent operation, with or without the presence of Crohn's disease. For now, the infection seems well drained, and he seems to be responding favorably to antibiotics. We are making arrangements to have him follow-up with [facility] for definitive treatment. Hopefully, will be a low output fistula that will close with time and antibiotics. However, if he does have Crohn's disease, this may be more complicated. We will make arrangements for discharge home today, with early follow-up in our office next week. Subjective Subjective Interval history since last seen: Carlos Enrique's been managing the drainage bag without any difficulty. His pain is controlled. He has been afebrile over the past 24 hours and tolerating a diet. Exam GI Other: Abdomen is soft and nondistended. Drainage bag contains stool and gas. Objective Last Vital Signs Temp 97.5 F L 01/19/23 06:24 Pulse 79 01/19/23 06:24 Resp 16 01/19/23 06:24 BP 103/72 01/19/23 06:24 Pulse Ox 98 01/19/23 06:24 Time Spent with Patient Time Spent with Patient: 25-34 minutes Time was spent: preparing to see the patient(eg.review tests) and counseling the patient
--- NOTE | 2023-01-19 18:33 | WOUNDCARE ---
Wound care was not able to see pt due to schedule conflicts. I was informed of needing just new colostomy instructs which is in the scope of practice for any licensed nurse. Wound Care Report
== END 2023-01-19 16:19 | disposition home health service (06) | DRG 394 ==
LOC: ER 13:40 → MS 14:37
PROVIDERS: Surgery; Admitting Provider Surgery; Emergency Provider Emergency Medicine; PCP Internal Medicine; Visit Provider Surgery
PROC: 0J980ZZ Drainage of Abdomen Subcutaneous Tissue and Fascia, Open Approach (ICD-10-PCS; CPT 10060; principal; 2023-01-15 12:00)
DX: K63.2 Fistula of intestine (principal); K50.90 Crohn's disease, unspecified, without complications; L02.211 Cutaneous abscess of abdominal wall
CPT/HCPCS: 10060; 36415; 80048; 80053; 83690; 84145; 85652; 86255; 87040; 87077; 96361; 96365; 96375; 99285; J1650; 74177; 81003; 81015; 83735; 85025; 86140; 87070; 87075; 87186; 87205; G0378; J1885; J2543; J3010; J3480